=== PATIENT | female | born 1950 | race Caucasian/White ===

== ENCOUNTER 2017-12-21 09:46 | Observation (INO) ==
[2017-12-21] MEDS ORDERED: cefTRIAXone 1 GM VIAL IV ONE (10:24)
[2017-12-21 10:26] LABS: Mean Cell Volume 82.9 fL (80.0-100.0); Mean Corpuscular HGB Conc 33.6 g/dL (31.0-36.0); Mean Corpuscular Hemoglobin 27.9 pg (26.0-34.0); Platelet Count 213 K/mcL (140-440); RBC 4.03 M/mcL (4.00-5.20); Red Cell Distribution Width 13.2 % (11.5-14.5)
[2017-12-21] MEDS ORDERED: 0.9 % SODIUM CHLORIDE 1,000 ML IV ONE (10:32)
[2017-12-21 10:44] LABS: ALT/SGPT 30 U/l (0-40); Albumin 3.8 gm/dL (3.2-5.2); Albumin/Globulin Ratio 1.5 (1.0-2.3); Alkaline Phosphatase 66 U/L (39-117); Blood Urea Nitrogen 75 mg/dl (8-23)
--- NOTE | 2017-12-21 10:53 | Emergency Department Note ---
Syncope HPI - General Chief Complaint: Syncope Stated Complaint: dizziness Time Seen by Provider: 12/21/17 09:58 Source: patient, EMS Mode of arrival: ambulatory Limitations: no limitations - History of Present Illness HPI Narrative: 67-year-old female who was at [facility] to see her primary care when she had a syncopal episode at the front sight attacher hitting her head-headache now. She was only out briefly. Denies any neck trauma. She states she has been over the last week but has not had fever or chills. One episode of diarrhea 3 days ago. For the most part she is constipated however. She notes decreased urination and pain with urination when she does. She did take some Tylenol which helps some. Her last A1c was 12.2 and she is an insulin-dependent diabetic and sees Dr. Bone for chronic kidney disease. Baseline GFR is 35 - Related Data Home Medications Medication Instructions Recorded Confirmed insulin aspart U-100 100 unit/mL See Label Instructions .ROUTE 03/18/16 subcutaneous solution .COMPLEX insulin degludec (U-100) 100 28 unit SUB-Q QHS ml 03/18/16 12/21/17 unit/mL (3 mL) subcutaneous pen Previous Rx's Medication Instructions Recorded aspirin 81 mg tablet,delayed 81 mg PO QDAY #60 tab 08/15/15 release cholecalciferol (vitamin D3) 2,000 1,000 unit PO QDAY #30 cap 09/15/16 unit capsule Allergies Allergy/AdvReac Type Severity Reaction Status Date / Time Iodinated Contrast- Oral and Allergy Severe Anaphylaxis Verified 12/21/17 09:56 IV Dye [Iodinated Contrast Media - IV Dye] Review of Systems All systems ED: reviewed and negative except as stated. Past Medical History - Past Medical History Attestation: Yes: The following information was validated with the patient. Medical history: Reports: DM, renal disease, other (Hyperuricemia, anemia of chronic disease) Surgical history ED: Reports: appendectomy, tonsillectomy, other (Middle toe, lymph node in the right neck) - Social History smoking status: Former smoker Physical Exam No acute distress resting comfortably. Small hematoma approximately 4 cm or so not bleeding on her occiput. Conjunctive are clear sclerae nonicteric. Pupils equal round reactive to light and accommodation. No nasal discharge or congestion. Oropharynx is pink and moist. Dentures noted. Posterior pharynx is clear. Neck is supple without lymphadenopathy thyromegaly or carotid bruit. Heart is regular rate and rhythm no murmur appreciated. Lungs are clear to auscultation bilaterally without wheezes rales rhonchi or respiratory distress. Abdomen is soft nontender nondistended except for suprapubic which is mildly tender. No CVA tenderness peritoneal signs or guarding. No pedal edema. +2 radial pulse. Alert oriented able to cooperate for physical exam and interview. No dysarthria or ataxia or tremor noted. Globally weak Limitations: no limitations Course Vital Signs Temperature 97.8 F 12/21/17 09:47 Pulse Rate 94 H 12/21/17 09:47 Blood Pressure 143/86 12/21/17 09:47 Pulse Oximetry (%) 99 12/21/17 09:47 Temperature 97.8 F 12/21/17 09:47 Pulse Rate 82 12/21/17 11:01 Respiratory Rate 18 12/21/17 11:01 Blood Pressure 164/78 12/21/17 11:01 Pulse Oximetry (%) 99 12/21/17 11:01 Syncope - Lab Data Lab results reviewed: Yes I reviewed the patient's lab results. Result diagrams: 12/21/17 10:07 12/21/17 10:07 Lab Results 12/21/17 12/21/17 12/21/17 Range/Units 10:07 10:07 10:07 WBC 4.8 (4.5-11.0) K/mcL RBC 4.03 (4.00-5.20) M/mcL Hgb 11.2 L (12.0-15.0) g/dL Hct 33.4 L (36.0-48.0) % POC Hct (36.0-48.0) % MCV 82.9 (80.0-100.0) fL MCH 27.9 (26.0-34.0) pg MCHC 33.6 (31.0-36.0) g/dL RDW 13.2 (11.5-14.5) % Plt Count 213 (140-440) K/mcL MPV 8.9 (7.4-10.4) fL Total Counted 100 Seg Neutrophils % 68 (38-78) % Band Neutrophils % 1 (0-10) % Lymphocytes % 20 (15-49) % Monocytes % (Manual) 10 (1-12) % Basophils % (Manual) 1 (0-2) % Platelet Estimate Normal (NORMAL) RBC Morphology Normal (NORMAL) VBG Lactic Acid 1.5 (0.5-2.2) mmol/L POC Sodium (133-145) mmol/L Sodium 135 (133-145) mmol/L POC Potassium (3.3-5.1) mmol/L Potassium 4.3 (3.3-5.1) mmol/L POC Chloride (96-108) mmol/L Chloride 101 (96-108) mmol/L Carbon Dioxide 20 L (22-30) mmol/L POC Total CO2 (22-30) mmol/L Anion Gap 14.0 (8-16) POC BUN (8-23) mg/dl BUN 75 H (8-23) mg/dl Creatinine 2.6 H (0.6-1.1) mg/dl POC Creatinine (0.6-1.1) mg/dl GFR Calculation 18 Glucose 305 H (70-105) mg/dL POC Glucose (70-105) mg/dL Calcium 9.6 (8.6-10.4) mg/dl POC WB Ioniz Calcium (1.16-1.32) mmol/L Magnesium (1.6-2.5) mg/dL Total Bilirubin 0.3 (0.0-1.0) mg/dL AST 22 (0-37) U/l ALT 30 (0-40) U/l Alkaline Phosphatase 66 (39-117) U/L Troponin T (0-0.03) ng/ml Total Protein 6.3 (5.9-8.4) gm/dL Albumin 3.8 (3.2-5.2) gm/dL Globulin 2.5 (2.2-3.7) gm/dL Albumin/Globulin Ratio 1.5 (1.0-2.3) 12/21/17 12/21/17 Range/Units 10:07 10:07 WBC (4.5-11.0) K/mcL RBC (4.00-5.20) M/mcL Hgb (12.0-15.0) g/dL Hct (36.0-48.0) % POC Hct 29.0 L (36.0-48.0) % MCV (80.0-100.0) fL MCH (26.0-34.0) pg MCHC (31.0-36.0) g/dL RDW (11.5-14.5) % Plt Count (140-440) K/mcL MPV (7.4-10.4) fL Total Counted Seg Neutrophils % (38-78) % Band Neutrophils % (0-10) % Lymphocytes % (15-49) % Monocytes % (Manual) (1-12) % Basophils % (Manual) (0-2) % Platelet Estimate (NORMAL) RBC Morphology (NORMAL) VBG Lactic Acid (0.5-2.2) mmol/L POC Sodium 137 (133-145) mmol/L Sodium (133-145) mmol/L POC Potassium 4.4 (3.3-5.1) mmol/L Potassium (3.3-5.1) mmol/L POC Chloride 106 (96-108) mmol/L Chloride (96-108) mmol/L Carbon Dioxide (22-30) mmol/L POC Total CO2 19 L (22-30) mmol/L Anion Gap (8-16) POC BUN 74 H (8-23) mg/dl BUN (8-23) mg/dl Creatinine (0.6-1.1) mg/dl POC Creatinine 2.8 H (0.6-1.1) mg/dl GFR Calculation Glucose (70-105) mg/dL POC Glucose 284 H (70-105) mg/dL Calcium (8.6-10.4) mg/dl POC WB Ioniz Calcium 1.21 (1.16-1.32) mmol/L Magnesium 2.1 (1.6-2.5) mg/dL Total Bilirubin (0.0-1.0) mg/dL AST (0-37) U/l ALT (0-40) U/l Alkaline Phosphatase (39-117) U/L Troponin T < 0.01 (0-0.03) ng/ml Total Protein (5.9-8.4) gm/dL Albumin (3.2-5.2) gm/dL Globulin (2.2-3.7) gm/dL Albumin/Globulin Ratio (1.0-2.3) Urinalysis [id number] dipstick shows small amount of leukocytes negative nitrites moderate blood specific gravity 1.005 - EKG Data EKG attestation: Yes I reviewed and interpreted this EKG. EKG results narrative: EKG shows a rate of 88 normal sinus rhythm with left axis deviation but no sign of ischemia Disposition Pt seen by [facility]ERTER/PA only: No Clinical Impression: Syncope due to orthostatic hypotension, Uncontrolled type 2 diabetes mellitus with insulin therapy Acute kidney failure Qualifiers: Acute renal failure type: unspecified Qualified Code(s): N17.9 - Acute kidney failure, unspecified UTI (urinary tract infection) Qualifiers: Urinary tract infection type: acute cystitis Hematuria presence: with hematuria Qualified Code(s): N30.01 - Acute cystitis with hematuria Scalp hematoma Qualifiers: Encounter type: initial encounter Qualified Code(s): S00.03XA - Contusion of scalp, initial encounter Summary: Patient is worked up for syncope and found to be severely orthostatic with a 60 point drop in systolic blood pressure when she stands. Her chronic kidney disease is much worse today with a GFR of 18. Additionally she has a UTI. Started Rocephin 1 dose for UTI. IV fluids 1 L as well. On review it does appear that her diabetes is not well controlled even on insulin She does have a small scalp hematoma but her neuro exam is normal and she is not on blood thinners beside ASA Discussed case with Dr. Wong, the hospitalist, who agreed to accept the patient for further evaluation care in the hospital Disposition: Xfer As Inpt ([facility]) Condition: Fair Referrals: Shanae Mora ARNP [Primary Care Provider] -
[2017-12-21 11:00] LABS: Band Neutrophils % 1 % (0-10); Basophils % (Manual) 1 % (0-2); Lymphocytes % 20 % (15-49); Monocytes % (Manual) 10 % (1-12); Platelet Estimate NORMAL (NORMAL); RBC Morphology NORMAL (NORMAL); Segmented Neutrophils % 68 % (38-78)
--- NOTE | 2017-12-21 11:23 | Internal Med History&Physical ---
Medical - H&P: HPI Patient information: Note initiated : 12/21/17 at 11:21 am Service Date, if different from initiated Date: [] Patient: Ana Kovacs 67 y/o F admitted on for dizziness. Chief Complaint: [] Chief complaint: syncope History of present illness: Ana Kovacs is a 50-xpycb-vic female with chronic kidney disease stage 3, persistent non-nephrotic range proteinuria, vitamin D deficiency, secondary hyperparathyroidism, chronic anemia due to renal failure, hypertension, diabetes mellitus type 2, here presents to the ER following a syncopal episode at primary care physician's office. Patient lives at [facility] and was visiting her primary care physician's office when she experienced a syncopal episode and went down. Event was witnessed by staff. More information is being obtained from PCPs office about nature of fall injury history. However patient denies seizure episode or incontinence. She denies aura or chest palpitations and lightheadedness or thunderclap headache prior to fainting. She has not had similar events in the past. She also endorses to not feeling well since Thursday. She has been experiencing lower abdominal discomfort and inability to void along with pain during urination since Thursday. She denies perineal bleeding, weight loss, blood in urine or stool, change in stool caliber however endorses to constipation over the last 4 days. She has had a recent yeast infection currently on fluconazole. She denies associated fever or skin rash joint pain, neck stiffness or vision changes. She denies new medication or taking diuretics. Initial workup in the ER was negative for positive orthostatics and elevated creatinine above baseline at 2.8. There were no EKG abnormalities. Hospitalist service was consulted for observation in light of syncopal episode and elevated creatinine. Patient was started on empiric antibiotics due to symptoms of dysuria and urine positive dip test She denies prior similar episodes although she has had history of intermittent seizures secondary to hypoglycemia in the past Review of systems 10 point review of system was performed and is negative except for ones discussed above Medical - H&P: PMH Medical history: Persistent proteinuria (Chronic) Anemia in stage 3 chronic kidney disease (Chronic) Secondary hyperparathyroidism of renal origin (Chronic) Vitamin D deficiency (Chronic) Chronic Kidney Disease (Chronic) Iron deficiency anemia (Acute) Chronic kidney disease, stage III (moderate) (Chronic) Gastroparesis diabeticorum (Chronic) Anemia (Chronic) Long-term insulin use (Chronic) Fatigue (Chronic) Low blood pressure (Chronic) Postmenopausal (Chronic) UTI (urinary tract infection) (Chronic) Poor sleep (Chronic) Diabetes (Chronic) Indigestion (Chronic) Proteinuria (Acute) Abnormal results of kidney function studies (Chronic) Amputation of little toe (Chronic) 1998 Hyperlipidemia (Chronic) Lesion of bladder (Chronic) 2013 Surgical history: Surgical History History of appendectomy (Chronic) 1965 S/P ear surgery (Chronic) ? gland in ear - 1966 Pertinent family history: Family History Father Alcoholism Sister Hypertension Diabetes mellitus History of intravascular stent placement Mother Cerebral hemorrhage Social history: Social History marital status: Accompanied with his sister K Patient lives at [facility] primary care physician Shanae Mora occupational status: retired smoking status: Former smoker quit 40 years ago alcohol intake frequency: holiday/special occasion only Medical - H&P: Meds Home Medications Medication Instructions Recorded Confirmed Type aspirin 81 mg tablet,delayed 81 mg PO QDAY #60 tab 08/15/15 12/21/17 Rx release insulin aspart U-100 100 unit/mL See Label Instructions .ROUTE 03/18/16 History subcutaneous solution .COMPLEX insulin degludec (U-100) 100 28 unit SUB-Q QHS ml 03/18/16 12/21/17 History unit/mL (3 mL) subcutaneous pen cholecalciferol (vitamin D3) 2,000 1,000 unit PO QDAY #30 cap 09/15/16 12/21/17 Rx unit capsule Allergies Allergy/AdvReac Type Severity Reaction Status Date / Time Iodinated Contrast- Oral and Allergy Severe Anaphylaxis Verified 12/21/17 09:56 IV Dye [Iodinated Contrast Media - IV Dye] Medical - H&P: Exam - Constitutional Vitals: Temp Pulse Resp BP Pulse Ox 97.8 F 82 18 164/78 99 12/21/17 09:47 12/21/17 11:01 12/21/17 11:01 12/21/17 11:01 12/21/17 11:01 General appearance: cooperative, no acute distress Exam: Eye movements symmetrical Oral cavity dry No ear or nose discharge Head normocephalic Neck no lymphadenopathy S1 and S2 regular rhythm Diminished breath sounds bases Abdomen soft Lower extremity no cyanosis clubbing Skin no suspicious lesion Psych alert cooperative Neuro nonfocal Medical - H&P: Reslt - Labs CBC & Chem 7: 12/21/17 10:07 12/21/17 10:07 Labs: Short CBC 12/21/17 Range/Units 10:07 WBC 4.8 (4.5-11.0) K/mcL Hgb 11.2 L (12.0-15.0) g/dL Hct 33.4 L (36.0-48.0) % Plt Count 213 (140-440) K/mcL BMP 12/21/17 10:07 Sodium 135 Potassium 4.3 Chloride 101 Carbon Dioxide 20 L BUN 75 H Creatinine 2.6 H Glucose 305 H Calcium 9.6 Cardiac Enzymes 12/21/17 Range/Units 10:07 Troponin T < 0.01 (0-0.03) ng/ml Liver Function 12/21/17 Range/Units 10:07 Total Bilirubin 0.3 (0.0-1.0) mg/dL AST 22 (0-37) U/l ALT 30 (0-40) U/l Alkaline Phosphatase 66 (39-117) U/L Albumin 3.8 (3.2-5.2) gm/dL Medical - H&P: A/P (1) Syncope due to orthostatic hypotension Current visit: Yes Status: Acute \ * Syncopal episode- workup including CT head/extrusion of arrhythmia/ vertebrobasilar circulation evaluation with Doppler ultrasound, continued orthostatics, fluid challenge. Recent echocardiogram reviewed with 60% EF and normal valves. Unlikely a seizure episode * Elevated creatinine likely volume depletion. Continue crystalloids. Nephrology consult if worsening creatinine * Urinary retention/dysuria-await UA. On empiric antibiotic coverage. Renal ultrasound to rule out obstructive uropathy. Foleys catheter placement * Insulin-dependent diabetes type 2-continue basal prandial insulin * DNR * Prophylaxis heparin Plan * Telemetry admit * Crystalloids/orthostatics/CT head/vertebrobasilar ultrasound * Renal ultrasound * Antibiotic coverage * Pre-existing medical condition management as above
[2017-12-21 12:18] LABS: Appearance,Urine HAZY; Bacteria,Urine 0 /hpf (0); Bilirubin,Urine NEG (NEG); Color,Urine YELLOW; Glucose,Urine (UA) >=500 mg/dL (NEG); Leukocyte Esterase,Urine 500 /uL (NEG); Protein,Urine 30 mg/dL (NEG); Specific Gravity,Urine 1.014 (1.000-1.035); Urine Blood NEG mg/dL (<0.03); Urine Hyaline Cast 1 /lpf (0-2); Urine RBC 2 /hpf (0-1); Urine Squamous Epithelial Cell 0 /hpf (0-4); Urine WBC 10 /hpf (0-4); Urobilinogen,Urine NEG (NEG)
[2017-12-21] MEDS ORDERED: ONDANSETRON 4 MG/2 ML VIAL IV PRN (12:33)
[2017-12-21] MEDS ORDERED: MAGNESIUM SULFATE 2 GM/50 ML BAG IV PRN (12:33)
[2017-12-21] MEDS ORDERED: DEXTROSE 50% 50 ML VIAL IV PRN (12:33)
[2017-12-21] MEDS ORDERED: ACETAMINOPHEN 325 MG TABLET PO PRN (12:33)
[2017-12-21] MEDS ORDERED: DEXTROSE 31 GM ORAL.SUSP PO PRN (12:33)
[2017-12-21] MEDS ORDERED: ACETAMINOPHEN 1,000 MG/100 ML BOTTLE IV PRN (12:33)
[2017-12-21] MEDS: INSULIN LISPRO 1 UNIT/0.01 ML UNIT SQ SCH ×3 (12:56→21:24)
[2017-12-21] MEDS: 0.9 % SODIUM CHLORIDE 1,000 ML IV SCH (12:57)
[2017-12-21] MEDS: 0.9 % SODIUM CHLORIDE 10 ML SYRINGE IV SCH ×2 (12:58→21:25)
[2017-12-21] MEDS ORDERED: cefTRIAXone 1 GM VIAL IV SCH (13:00)
--- NOTE | 2017-12-21 14:31 | Cat Scan Report ---
CLINICAL INFORMATION: Syncope COMPARISON: None. TECHNIQUE: 2.5 mm helical slices were obtained in the skull base to vertex. Following reconstruction, axial reformatted images were reviewed at bone and parenchymal windows. The exam was performed using radiation dose optimization techniques including, but not limited to, automated exposure control, adjustment of the mA and/or kV according to patient size and use of iterative reconstruction technique. FINDINGS: The ventricles, sulci, fissures, and cisterns are symmetrically enlarged trauma with mild age-related atrophy - no subdural hemorrhage or extra-axial fluid collection or mass appreciated. Minimal chronic ischemic changes deep cerebral white matter are typical for age. Scattered punctate remote lacunar infarcts in the basal ganglia. There is no intracerebral hemorrhage, mass effect, edema or other acute finding. Bone windows show no osseous abnormality. 4 cm lens shaped lipoma in the left posterior frontal scalp region noted IMPRESSION: Mild atrophy and minimal chronic ischemic changes in the cerebral white matter expected for age. Scattered remote lacunar infarcts in the basal ganglia. No acute findings.. Interpreted and Authenticated by: Bucky Haji 12/21/17
--- NOTE | 2017-12-21 15:53 | Ultrasound Report ---
CLINICAL INFORMATION: Syncope evaluate for vertebral basilar insufficiency COMPARISON: None. TECHNIQUE: Spectral Doppler velocity measurements were obtained in the proximal, mid and distal common and internal carotid, both vertebral and proximal external carotid arteries bilaterally. Supplemental color and power Doppler imaging was also obtained to optimize stenosis detection. In reporting, any internal carotid stenosis was indirectly quantified comparing the distal internal carotid velocity. For ratio comparison, the internal carotid artery, at the level of stenosis, was utilized in the numerator and the normal distal internal carotid artery velocity was utilized as the denominator. Velocities are validated with angiographic measurements extrapolated from diameter data - as defined by the Society of Radiologists in Ultrasound Consensus Conference .Radiology 2003; 229; 340 - 346. FINDINGS: See worksheet by the technologist for velocities in PACS IMPRESSION: 1. Both common, internal and external carotid arteries are widely patent. 2. 3. Antegrade symmetric arterial blood flow in both vertebral arteries - no sonographic evidence of vertebral stenosis Please correlate with CTA CT Angiography or MRA MR Angiography if surgery is contemplated. Interpreted and Authenticated by: Bucky Haji 12/21/17
--- NOTE | 2017-12-21 16:23 | Ultrasound Report ---
CLINICAL INFORMATION: Acute kidney disease COMPARISON: Renal ultrasound over two years prior - 11/12/2015 FINDINGS: Both kidneys are lower limits of normal in size: The right is 9.5 x 4.4 cm and the left is 9.5 x 5 cm. Renal cortex and medulla are mildly thinned and hyperechoic compatible with medical renal disease. Probable volume loss has progressed since the previous study. No focal renal lesions. The arterial blood flow is normal on color Doppler. No hydronephrosis Ledesma catheter is in place decompressing the bladder - no gross abnormality IMPRESSION: Both kidneys are at lower limits of normal in size with reduction in corticomedullary volume and increased echogenicity compatible bilateral medical renal disease. This has progressed modestly since a comparison ultrasound two years ago Interpreted and Authenticated by: Bucky Haji 12/21/17
[2017-12-21] MEDS ORDERED: INSULIN GLARGINE, HUMAN 1 UNIT/0.01 ML SQ SCH (21:00)
[2017-12-21] MEDS ORDERED: INSULIN DEGLUDEC SUB-Q SCH (21:00)
[2017-12-21] MEDS: DOCUSATE SODIUM 100 MG CAPSULE PO SCH (21:23)
[2017-12-21] MEDS: SENNOSIDES/DOCUSATE SODIUM 1 TAB TABLET PO SCH (21:23)
[2017-12-21] MEDS: HEPARIN 5,000 UNIT/ML VIAL SQ SCH (21:23)
[2017-12-22 05:32] LABS: Mean Cell Volume 83.8 fL (80.0-100.0); Mean Corpuscular Hemoglobin 28.5 pg (26.0-34.0); Platelet Count 196 K/mcL (140-440); RBC 3.56 M/mcL (4.00-5.20); Red Cell Distribution Width 13.3 % (11.5-14.5)
[2017-12-22] MEDS: 0.9 % SODIUM CHLORIDE 10 ML SYRINGE IV SCH ×3 (05:46→20:51)
[2017-12-22 05:56] LABS: ALT/SGPT 22 U/l (0-40); Albumin 3.2 gm/dL (3.2-5.2); Albumin/Globulin Ratio 1.5 (1.0-2.3); Alkaline Phosphatase 54 U/L (39-117); Bilirubin,Direct < 0.2 mg/dL (0.0-0.3); Blood Urea Nitrogen 54 mg/dl (8-23); Gamma Glutamyl Transpeptidase 13 U/L (5-36); Uric Acid 8.4 mg/dL (2.5-8.0)
[2017-12-22 07:01] LABS: Band Neutrophils % 6 % (0-10); Eosinophils % (Manual) 4 % (0-7); Lymphocytes % 32 % (15-49); Metamyelocytes % 1 % (0-0); Monocytes % (Manual) 11 % (1-12); Platelet Estimate NORMAL (NORMAL); RBC Morphology NORMAL (NORMAL); Segmented Neutrophils % 44 % (38-78)
[2017-12-22] MEDS: INSULIN LISPRO 1 UNIT/0.01 ML UNIT SQ SCH ×4 (07:55→20:49)
[2017-12-22] MEDS: 0.9 % SODIUM CHLORIDE 1,000 ML IV SCH ×5 (09:28→22:50)
[2017-12-22] MEDS: HEPARIN 5,000 UNIT/ML VIAL SQ SCH ×2 (09:32→20:49)
[2017-12-22] MEDS: ASPIRIN 81 MG TAB.CHEW PO SCH (09:32)
[2017-12-22] MEDS: DOCUSATE SODIUM 100 MG CAPSULE PO SCH ×2 (09:32→21:03)
[2017-12-22] MEDS: cefTRIAXone 2 GM in DEXTROSE 5% IN WATER 50 ML IV SCH (09:32)
--- NOTE | 2017-12-22 12:28 | Internal Med Progress Note ---
Medical - PN: Subj Patient information: Note initiated : 12/22/17 at 12:21 pm Service Date, if different from initiated Date: [] Patient: Ana Kovacs 67 y/o F admitted on 12/21/17 for Dizziness/Syncope due to Orthostatic Hypotension. Chief Complaint: [] Interval history: Ana Kovacs is a [id number] female with chronic kidney disease stage 3, persistent non-nephrotic range proteinuria, vitamin D deficiency, secondary hyperparathyroidism, chronic anemia due to renal failure, hypertension, diabetes mellitus type 2, here presents to the ER following a syncopal episode at primary care physician's office. Patient lives at [facility] and was visiting her primary care physician's office when she experienced a syncopal episode and went down. Event was witnessed by staff. More information is being obtained from PCPs office about nature of fall injury history. However patient denies seizure episode or incontinence. She denies aura or chest palpitations and lightheadedness or thunderclap headache prior to fainting. She has not had similar events in the past. She also endorses to not feeling well since Thursday. She has been experiencing lower abdominal discomfort and inability to void along with pain during urination since Thursday. She denies perineal bleeding, weight loss, blood in urine or stool, change in stool caliber however endorses to constipation over the last 4 days. She has had a recent yeast infection currently on fluconazole. She denies associated fever or skin rash joint pain, neck stiffness or vision changes. She denies new medication or taking diuretics. Initial workup in the ER was negative for positive orthostatics and elevated creatinine above baseline at 2.8. There were no EKG abnormalities. Hospitalist service was consulted for observation in light of syncopal episode and elevated creatinine. Patient was started on empiric antibiotics due to symptoms of dysuria and urine positive dip test She denies prior similar episodes although she has had history of intermittent seizures secondary to hypoglycemia in the past 12/22 Pt seen examined, no acute overnight issues, tolerating po well this AM noted to be hypoglycemic, D50 given, pt glucose better notes she has often had low glucose values in the AM, usually uses 20-22 but can use upto 28 units of insulin. I will cut the dose of lantus to 15, ssi is low dose, She is still orthostatic renal function is better CT head neg, carotid usg neg, syncope likely due to dehydration/ orthostatic changes. Pertinent ROS: Denies headache, present orthostatic dizziness Denies chest pain, palpitations Denies cough or shortness of breath Denies abdominal pain, nausea or vomiting. - Constitutional Vitals: Vital Signs Temp Pulse Resp BP Pulse Ox 98.2 F 76 16 157/68 96 12/22/17 12:16 12/22/17 12:16 12/22/17 12:16 12/22/17 12:16 12/22/17 12:16 Period Temp Pulse Resp BP Sys/Lloyd Pulse Ox Last 24 Hr 97.1 F-99.3 F 61-87 16-22 69-170/41-74 95-99 Intake and Output 12/21/17 12/22/17 12/22/17 21:59 05:59 13:59 Intake Total 480 / 480 610 / 610 1548 / 1548 Output Total 1200 / 1200 550 / 550 Balance -720 / -720 60 / 60 1548 / 1548 Weight 144 lb Intake & Output: Intake & Output 12/21/17 12/22/17 12/22/17 21:59 05:59 13:59 Intake Total 480 / 480 610 / 610 1548 / 1548 Output Total 1200 / 1200 550 / 550 Balance -720 / -720 60 / 60 1548 / 1548 Weight 144 lb Intake: IV 1068 / 1068 Sodium Chloride 0.9% 1,000 ml @ 1068 / 1068 50 mls/hr IV .Q20H [facility] Rx#: [id number] Oral 480 / 480 610 / 610 480 / 480 Output: Urine Catheter Amount 1200 / 1200 550 / 550 Other: Meal Breakfast Percent of Meal Consumed 90% Feeding Ability Assist with Tray Set Up Exam: Constitutional; Afebrile, cooperative, alert, not in distress. Eyes- No icterus, , No periorbital swelling Ears- Ext ear normal, hearing normal to conversation. Neck- Midline trachea, supple Respiratory system: Air Entry equal on both sides, No crackles or wheezing, no rhonchi. CVS- Rate rhythm regular, S1,S2 heard, no gallop, no rub. Abdomen- Soft nontender abdomen, no organomegaly, no tenderness, no guarding or rigidity, BIN CLEANER- AOOx3, moving all extremities, no gross focal deficit noted. Medical - PN: Obj Da - Labs CBC & Chem 7: 12/22/17 03:40 12/22/17 03:40 Labs: Abnormal Lab Results 12/22/17 12/22/17 12/21/17 03:40 03:40 10:10 RBC 3.56 L Hgb 10.1 L Hct 29.8 L POC Hct Metamyelocytes % 1 H Chloride 110 H Carbon Dioxide POC Total CO2 POC BUN BUN 54 H Creatinine 2.1 H POC Creatinine Glucose 121 H POC Glucose Uric Acid 8.4 H Total Protein 5.4 L Triglycerides 169 H Urine Protein 30 A Urine Glucose (UA) >=500 A Urine Ketones 5/tr A Ur Leukocyte Esterase 500 A Urine RBC 2 H Urine WBC 10 H 12/21/17 12/21/17 12/21/17 10:07 10:07 10:07 RBC Hgb 11.2 L Hct 33.4 L POC Hct 29.0 L Metamyelocytes % Chloride Carbon Dioxide 20 L POC Total CO2 19 L POC BUN 74 H BUN 75 H Creatinine 2.6 H POC Creatinine 2.8 H Glucose 305 H POC Glucose 284 H Uric Acid Total Protein Triglycerides Urine Protein Urine Glucose (UA) Urine Ketones Ur Leukocyte Esterase Urine RBC Urine WBC Meds: Medications Acetaminophen (Tylenol) 650 mg PO Q4-6HP PRN PRN Reason: PAIN/FEVER > 101 Aspirin (Aspirin) 81 mg PO DAILY [facility] Last Admin: 12/22/17 09:32 Dose: 81 mg Dextrose (Dextrose 50%) 0 ml IV UD PRN PRN Reason: Hypoglycemia Last Admin: 12/22/17 07:54 Dose: 50 ml Diagnostic Test (Pha) (Accu-Chek) 1 each FS ACHS [facility] Last Admin: 12/22/17 12:10 Dose: 1 each Docusate Sodium (Colace) 100 mg PO BID [facility] Last Admin: 12/22/17 09:32 Dose: 100 mg Glucose (Insta-Glucose) 15 gm PO PRN PRN PRN Reason: Hypoglycemia Heparin Sodium (Porcine) (Heparin) 5,000 unit SQ Q12 [facility] Last Admin: 12/22/17 09:32 Dose: 5,000 unit Ceftriaxone Sodium 2 gm/ (Dextrose) 50 mls @ 100 mls/hr IV Q24H [facility] Last Admin: 12/22/17 09:32 Dose: 100 mls/hr Magnesium Sulfate (Magnesium Sulfate) 2 gm in 50 mls @ 50 mls/hr IV UD PRN PRN Reason: MG = or < 1.7 Acetaminophen (Ofirmev) 1,000 mg in 100 mls @ 200 mls/hr IV Q6HP PRN PRN Reason: PAIN/FEVER > 101 Insulin Glargine (Lantus) 15 unit SQ HS KIRSTIN Insulin Human Lispro (Humalog) 0 unit SQ ACHS KIRSTIN PRN Reason: Protocol Last Admin: 12/22/17 12:13 Dose: 6 unit Ondansetron HCl (Zofran) 4 mg IV Q4-6HP PRN PRN Reason: Nausea And Vomiting Senna/Docusate Sodium (Senna Plus Tablet) 1 tab PO HS [facility] Last Admin: 12/21/17 21:23 Dose: 1 tab Sodium Chloride (Saline Flush) 10 ml IV Q8 [facility] Last Admin: 12/22/17 05:46 Dose: Not Given Medical - PN: A/P - Time Spent With Patient Total time spent is greater than 50% in coordination of care (as documented) at patient's floor/unit and/or counseling patient: - Narrative A/P Narrative: A/p sycope- likely orthostatic, pt feeling better, but still has orthostatic hypotension, IV fluids to contine, no events on tele, ct head neg, carotid duplex neg, monitor on tele Acute on Chr renal failure- creat improved to 2.1, anticipate continued improvement with IVF< monitor. UTI- ON rocephin, urine cultures is showing proteus, DM type 2, uncontrolled, with hyper and hypoglycemia- cut back the dose of lantus for now, she may need low basal and high sliding scale vs non insulin regime check A1c, advised outpatient follow up with openstack developer if unable to get DM under better control DVT hep sq DNR code status. Medical - PN: Qual - VTE Deep Vein Thrombosis/Pulmonary Embolism Present on Admission: No
[2017-12-22] MEDS: INSULIN GLARGINE, HUMAN 1 UNIT/0.01 ML SQ SCH (20:49)
[2017-12-22] MEDS: SENNOSIDES/DOCUSATE SODIUM 1 TAB TABLET PO SCH (21:03)
[2017-12-23 05:52] LABS: Mean Cell Volume 84.8 fL (80.0-100.0); Mean Corpuscular HGB Conc 33.1 g/dL (31.0-36.0); Mean Corpuscular Hemoglobin 28.1 pg (26.0-34.0); Platelet Count 206 K/mcL (140-440); RBC 3.64 M/mcL (4.00-5.20)
[2017-12-23 06:01] LABS: ALT/SGPT 18 U/l (0-40); Albumin 3.1 gm/dL (3.2-5.2); Albumin/Globulin Ratio 1.4 (1.0-2.3); Alkaline Phosphatase 51 U/L (39-117); Bilirubin,Direct < 0.2 mg/dL (0.0-0.3); Blood Urea Nitrogen 34 mg/dl (8-23); Gamma Glutamyl Transpeptidase 13 U/L (5-36); Uric Acid 6.8 mg/dL (2.5-8.0)
[2017-12-23 06:41] LABS: Estimated Average Glucose(eAG) 280 mg/dL; Hemoglobin A1C 11.4 % HGB (4.0-6.0)
[2017-12-23 07:41] LABS: Eosinophils % (Manual) 2 % (0-7); Lymphocytes % 26 % (15-49); Monocytes % (Manual) 5 % (1-12); Platelet Estimate NORMAL (NORMAL); RBC Morphology NORMAL (NORMAL); Segmented Neutrophils % 65 % (38-78)
[2017-12-23] MEDS: ASPIRIN 81 MG TAB.CHEW PO SCH (09:00)
[2017-12-23] MEDS: DOCUSATE SODIUM 100 MG CAPSULE PO SCH (09:14)
[2017-12-23] MEDS: cefTRIAXone 2 GM in DEXTROSE 5% IN WATER 50 ML IV SCH (09:14)
[2017-12-23] MEDS: 0.9 % SODIUM CHLORIDE 10 ML SYRINGE IV SCH (09:15)
[2017-12-23] MEDS: INSULIN LISPRO 1 UNIT/0.01 ML UNIT SQ SCH ×2 (09:15→12:02)
[2017-12-23] MEDS: HEPARIN 5,000 UNIT/ML VIAL SQ SCH (09:18)
[2017-12-23] MEDS: INSULIN GLARGINE, HUMAN 1 UNIT/0.01 ML SQ SCH (09:19)
[2017-12-23] MEDS ORDERED: LORazepam 2 MG/ML VIAL IV ONE ×2 (10:29→13:00)
--- NOTE | 2017-12-23 13:18 | Cat Scan Report ---
CLINICAL INFORMATION: Trauma - now with neck pain and dizziness COMPARISON: None. TECHNIQUE: 0.625 mm helical slices were obtained from the skull base through the superior T2 end plate, and following reconstruction, 2.5 mm sagittal, coronal and axial reformations were then processed. The exam was reviewed at bone and soft tissue windows. The exam was performed using radiation dose optimization techniques including, but not limited to, automated exposure control, adjustment of the mA and/or kV according to patient size and use of iterative reconstruction technique. FINDINGS: Sagittal and coronal reformatted images show the cervical spine is anatomically aligned. There is an old ununited Mario instrument mechanics supervisor's fracture through the C7 spinous process tip which should be clinically insignificant. No other osseous abnormality. The cervical cord is normal in contour and caliber without focal lesion. Paraspinous soft tissues are significant for three colloid cyst in the right thyroid lobe measuring up to 17 mm. There is a 11 mm inhomogeneous solid lesion in the left thyroid lobe and 3-4 smaller lesions low-attenuation left thyroid lobe. There is also a 7.2 mm nodule in the posterior segment of the right upper lobe. Increased soft tissue in the right maxillary sinus is seen on only the most superior image: this could represent sinusitis or polyp At C2-3 and C3-4, there is minimal broad central disc protrusion slightly impinges the thecal sac. At C4-5 disc level is normal At C5-6, mild broad disc spur complex results in mild central canal and mild bilateral lateral recess narrowing At C6-7, moderate broad disc spur complex results in mild central canal, mild left and minimal right lateral recess narrowing. At C7-T1, the disc level is normal IMPRESSION: 1. 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 There is a nonweightbearing region and considered clinically insignificant. There are no acute fractures or other significant osseous abnormality 2. Mild multilevel degenerative change - as described 3. Multiple thyroid lesions likely both colloid cysts and adenomas. A multinodular adenoma was also described on a 07/30/2016 thyroid ultrasound. 4. 7 mm nodule in the posterior segment of the right upper lobe - consider chest CT 5. Right maxillary sinusitis Interpreted and Authenticated by: Bucky Haji 12/23/17
--- NOTE | 2017-12-23 14:16 | Magnetic Resonance Report ---
CLINICAL INFORMATION: Trauma with headache COMPARISON: Head CT - 12/21/2017 TECHNIQUE:Sagittal T1 FLAIR, axial T1 FLAIR, T2 FLAIR propeller, T2 propeller, gradient, diffusion, ADC and coronal T2 weighted images were acquired. FINDINGS: The ventricles, sulci, fissures and cisterns show minimal symmetric enlargement palpable with mild age-related atrophy - no subdural hemorrhage or other extra-axial fluid collection or mass is appreciated. Scattered chronic ischemic foci in the deep cerebral white matter is expected for age. There is no intracerebral hemorrhage, mass effect, restricted diffusion, edema or other acute finding. A 4.2 x 1 cm benign lipoma in the left frontal scalp region seen as before. There are two polyps in the right maxillary sinus, 18 and 10 mm, respectively. Other paranasal air cells are clear. Orbits and pituitary are normal. A small amount of fluid present within a single left mastoid air cell IMPRESSION: 1. No intracerebral hemorrhage or other acute posttraumatic change 2. Mild atrophy and scattered chronic ischemic foci in the deep cerebral white matter - expected for age 3. 4 cm benign lipoma in the left frontal scalp 4. Mild left mastoiditis 5. Two polyps, ranging up to 18 mm, in the right maxillary sinus Interpreted and Authenticated by: Bucky Haji 12/23/17
--- NOTE | 2017-12-23 15:13 | Discharge Summary ---
Medical - DS: Prov Patient information: Note initiated : 12/23/17 at 3:08 pm Service Date, if different from initiated Date: [] Patient: Ana Kovacs 67 y/o F admitted on 12/21/17 for Dizziness/Syncope due to Orthostatic Hypotension. Chief Complaint: [] Date of admission: 12/21/17 12:29 Discharge date: 12/23/17 Primary care physician: Shanae Mora Admitting clinician: Nikunj Iniguez Consults: 12/21/17 11:12 Consult to Physician [CONS] Stat Comment: Consulting Provider: Nikunj Iniguez Reason For Exam: Physician to Consult Discharging clinician: Morro Celaya Medical - DS: Meds - Discharge Medications Prescriptions: Cephalexin [Keflex] 500 mg PO BID #10 cap Active and Home Medications: Home Medications aspirin 81 mg tablet,delayed release 81 mg PO QDAY #60 tab 08/15/15 [Rx Confirmed 12/21/17 Last Taken Unknown] insulin aspart U-100 100 unit/mL subcutaneous solution See Label Instructions .ROUTE .COMPLEX 03/18/16 [History Confirmed 12/21/17 Last Taken Unknown] insulin degludec (U-100) 100 unit/mL (3 mL) subcutaneous pen 28 unit SUB-Q QHS ml 03/18/16 [History Confirmed 12/21/17 Last Taken Unknown] cholecalciferol (vitamin D3) 2,000 unit capsule 1,000 unit PO QDAY #30 cap 09/15 [Rx Confirmed 12/21/17 Last Taken Unknown] Cephalexin [Keflex] 500 mg PO BID #10 cap 12/23/17 [Rx Last Taken Unknown] Medical - DS: Hosp Hospital course: Ana Kovacs is a [id number] female with chronic kidney disease stage 3, persistent non-nephrotic range proteinuria, vitamin D deficiency, secondary hyperparathyroidism, chronic anemia due to renal failure, hypertension, diabetes mellitus type 2, here presents to the ER following a syncopal episode at primary care physician's office. Patient lives at [facility] and was visiting her primary care physician's office when she experienced a syncopal episode and went down. Event was witnessed by staff. More information is being obtained from PCPs office about nature of fall injury history. However patient denies seizure episode or incontinence. She denies aura or chest palpitations and lightheadedness or thunderclap headache prior to fainting. She has not had similar events in the past. She also endorses to not feeling well since Thursday. She has been experiencing lower abdominal discomfort and inability to void along with pain during urination since Thursday. Initial workup in the ER was negative for positive orthostatics and elevated creatinine above baseline at 2.8. There were no EKG abnormalities. Hospitalist service was consulted for observation in light of syncopal episode and elevated creatinine. Patient was started on empiric antibiotics due to symptoms of dysuria and urine positive dip test Syncope- Positive orthostatics despite treatment of dehydration, she has h/o same in the past, She has diabetic autonomic neuropathy causing ortho static hypotension. She has been diagnosed with this in the past, her present epside was a culmination of UTi, dehydration as well as autonomic dysregulation Head CT is neg, MRI head is neg, Carotid duplex neg, CT cervical is neg for acute fractures. She has been educated to keep yourself well hydrated. She has been educated with regards to making sure that she changes her posture from lying to sitting and then sitting to standing gradually making sure that she is not having any symptoms before she leaves the bedside of the chair. I have advised to to get MARIBELL hose stockings, she needs to use the stockings in the morning and remove them at bedtime. This will help with her orthostatic blood pressure changes. Dizziness- she report some dizziness when she moves her head, I believe this is post concussion syndrome which should improve by it self. Urinary tract infection-Proteus noted pansensitive received 2 doses of Rocephin , will complete 5 more days with Keflex. Acute on chr renal failure, CReat was 2.8, improve to 1.5 at discharge Diabetes-patient has uncontrolled diabetes with hyper and hypoglycemic spells. She is taking 28 units of long-acting insulin and a sliding scale, I have advised her to cut back on the long-acting insulin. Talk to her doctor with regards to sliding scale dosing. I believe that she would benefit from an evaluation by an dispatch officer. I would advise the PCP to make a referral to see an dispatch officer. Discharge diagnosis: UTI, syncope, Diabetic neuropathy - Time Spent with Patient Total time spent providing and/or coordinating discharge services: Greater than 30 minutes Medical - DS: Exam - Constitutional Vitals: Vital Signs Temp Pulse Pulse Pulse Pulse Resp BP 12/23/17 12:05 77 12/23/17 12:00 98.0 F 73 18 12/23/17 09:00 64 70 12/23/17 08:00 65 12/23/17 07:46 97.7 F 16 12/23/17 04:00 98.1 F 72 18 12/23/17 00:19 98.4 F 18 163/65 12/22/17 20:00 98.8 F 72 16 12/22/17 15:53 98.3 F 68 16 BP BP BP BP Pulse Ox 12/23/17 12:05 95/55 12/23/17 12:00 146/64 100 12/23/17 09:00 155/63 77/52 12/23/17 08:00 140/73 12/23/17 07:46 185/63 98 12/23/17 04:00 152/68 12/23/17 00:19 98 12/22/17 20:00 151/63 96 12/22/17 15:53 155/61 98 Intake and Output 12/23/17 12/23/17 12/23/17 05:59 13:59 21:59 Intake Total 990 / 990 300 / 300 Output Total 950 / 950 1200 / 1200 Balance 40 / 40 -900 / -900 Intake: IV 990 / 990 Sodium Chloride 0.9% 1,000 ml @ 990 / 990 150 mls/hr IV .[id number] [facility] Rx#: [id number] Oral 300 / 300 Output: Urine Catheter Amount 950 / 950 900 / 900 Void Amount 300 / 300 Other: Meal Lunch Percent of Meal Consumed Jello-100% 50% Feeding Ability Independent Additional comments: Constitutional; Afebrile, cooperative, alert, not in distress. Eyes- No icterus, , No periorbital swelling Ears- Ext ear normal, hearing normal to conversation. Neck- Midline trachea, supple Respiratory system: Air Entry equal on both sides, No crackles or wheezing, no rhonchi. CVS- Rate rhythm regular, S1,S2 heard, no gallop, no rub. Abdomen- Soft nontender abdomen, no organomegaly, no tenderness, no guarding or rigidity, WELDING MACHINE TENDER- AOOx3, moving all extremities, no gross focal deficit noted. Medical - DS: Data Labs on day of discharge: Labs from last 24 hours 06/27/18 06/27/18 03:50 03:50 WBC 4.4 L RBC 3.64 L Hgb 10.2 L Hct 30.9 L MCV 84.8 MCH 28.1 MCHC 33.1 RDW 13.0 Plt Count 206 MPV 8.9 Total Counted 100 Seg Neutrophils % 65 Band Neutrophils % Not Reportable Lymphocytes % 26 Monocytes % (Manual) 5 Eosinophils % (Manual) 2 Reactive Lymphocytes 2 Platelet Estimate Normal RBC Morphology Normal Sodium 142 Potassium 4.2 Chloride 112 H Carbon Dioxide 22 Anion Gap 8.0 BUN 34 H Creatinine 1.5 H GFR Calculation 36 Glucose 118 H Hemoglobin A1c 11.4 H Estim Average Glucose 280 Uric Acid 6.8 Calcium 9.0 Phosphorus 3.3 Magnesium 1.7 Total Bilirubin < 0.2 Direct Bilirubin < 0.2 GGT 13 AST 13 ALT 18 Alkaline Phosphatase 51 Lactate Dehydrogenase 187 Total Protein 5.3 L Albumin 3.1 L Globulin 2.2 Albumin/Globulin Ratio 1.4 Triglycerides 150 Preliminary micro results at discharge 12/21/17 13:23 Blood Culture - Preliminary Blood 12/21/17 13:04 Blood Culture - Preliminary Blood Medical - DS: A/P - Patient/Caregiver Discharge Instructions Activity: increase activity as tolerated Diet: Cardiac, Consistent Carbohydrate Additional Instructions: Please do not make sudden changes in posture if lying down please sit by the bed side for 30 seconds, then stand by the bed side for 30 seconds before leaving the bed side. If you feel dizzy or unsteady please sit back in the bed. Keep your self well hydrated Talk to your doctor with regards to referral to an dispatch officer Please buy a thigh high compression stocking set, You can buy these at the local pharmacy. Use them when you wake up in the morning and remove at bed time. Follow up with PCP in 1 week Take antibiotics as prescribed Go to the ER if worsening condition, chest pain, shortness of breath or any other acute concerns. Prescriptions: Cephalexin [Keflex] 500 mg PO BID #10 cap - Follow up Plan Follow up with: Shanae Mora ARNP [Primary Care Provider] - 12/31/17 1:00 pm (This appointment is with Shanae Vivas is out of the office.) Disposition: Home, Self-Care Prognosis: Fair Rehab Potential: Fair I certify that the patient requires SNF services: No Medical - DS: Qual - VTE Deep Vein Thrombosis/Pulmonary Embolism Present on Admission: No
== END 2017-12-23 15:30 | disposition home or self-care (01) ==
LOC: ICU 09:46 → ED 09:46 → ICU 12:25
PROVIDERS: ADMIT Internal Medicine; ATTEND Internal Medicine

== ENCOUNTER 2022-11-27 15:42 | Inpatient (IN) ==
--- NOTE | 2022-11-27 16:04 | Emergency Department Note ---
HPI General Chief complaint: Extremity Injury, Lower Stated complaint: Foot pain Time Seen by Provider: 11/27/22 15:54 Source: patient Mode of arrival: ambulatory Limitations: no limitations History of Present Illness HPI Narrative: Narrative: 72-year-old diabetic with renal failure who presents for medical clearance prior to a toe amputation tomorrow by Dr. Dunlap. She just finished dialysis prior to coming and feels relatively well, she has no complaints. Past medical history is positive for diabetes, ESRD, diabetic angiopathy, gangrene of the right foot. She states she just had an EKG done as an outpatient. Related Data Home Medications Medication Instructions Recorded Confirmed insulin glargine 100 unit/mL (3 See Rx Instructions .Route .COMPLEX 08/22/21 11/26/22 mL) subcutaneous pen (Lantus Solostar U-100 Insulin) Previous Rx's Medication Instructions Recorded aspirin 81 mg tablet,delayed 81 mg PO QDAY #60 tabs 08/15/15 release (Adult Low Dose Aspirin) insulin aspart U-100 100 unit/mL See Rx Instructions .Route 12/06/19 subcutaneous solution (Novolog .COMPLEX #10 mL U-100 Insulin aspart) denosumab 60 mg/mL subcutaneous 60 mg subcut [id number] #1 mL 03/28/20 syringe (Prolia) glucagon 1 mg/0.2 mL subcutaneous 1 mg (0.2 mL) subcut ONCE #0.2 mL 08/10/20 auto-injector cholecalciferol (vitamin D3) 100 100 mcg PO QDAY #90 tabs 09/05/20 mcg (4,000 unit) tablet Allergies Allergy/AdvReac Type Severity Reaction Status Date / Time Iodinated Contrast Media Allergy Severe Anaphylaxis Verified 11/26/22 12:06 [Iodinated Contrast Media - IV Dye] Review of Systems ROS ROS Narrative: Narrative: All systems ED: reviewed and negative except as stated. PFSH Narrative Patient History Narrative: Narrative: Medical/Surgical/Family History All Active Problems (Updated 11/27/22 @ 17:11 by Jay Jay Kidd MD) Indigestion (Chronic) Poor sleep (Chronic) Lesion of bladder (Chronic) Amputation of little toe (Chronic ~1998) Postmenopausal (Chronic) Low blood pressure (Chronic) Fatigue (Chronic) Long-term insulin use (Chronic) Proteinuria (Chronic) Hyperlipidemia (Chronic) Gastroparesis diabeticorum (Chronic) Iron deficiency anemia (Chronic) Vitamin D deficiency (Chronic) Secondary hyperparathyroidism of renal origin (Chronic) Persistent proteinuria (Chronic) Uncontrolled type 2 diabetes mellitus with insulin therapy (Chronic) Hyperuricemia (Chronic) Body mass index (bmi) 25.0-25.9, adult (Chronic) Syncope due to orthostatic hypotension (Acute) Scalp hematoma (Acute) Yeast infection (Chronic) Diverticulosis (Chronic) Vulvovaginal candidiasis (Chronic) Pyelonephritis, acute (Chronic) Diabetic retinopathy (Chronic) Abnormal findings on diagnostic imaging of lung (Chronic) Coronary artery disease (Chronic) Hemorrhoids (Chronic) Diabetic peripheral neuropathy (Chronic) Murmur, cardiac (Chronic) Osteopenia (Chronic) At risk for falls (Chronic) Renal osteodystrophy (Chronic) Body mass index 26.0-26.9, adult (Chronic) Shoulder pain, left (Chronic) Multinodular goiter (Chronic) Recurrent UTI (Chronic) Anemia of chronic disease (Chronic) GERD (gastroesophageal reflux disease) (Chronic) Wellness examination (Chronic) Diverticulosis of colon without hemorrhage (Chronic) History of hypoglycemia (Chronic) Medicare annual wellness visit, subsequent (Acute) Osteoporosis (Acute) Leg ulcer, left (Acute) COVID-19 (Acute) Hypoglycemia associated with diabetes (Acute) Syncope and collapse (Acute) Primary hypertension (Chronic) ESRD needing dialysis (Chronic) 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 At risk for falls Body mass index (bmi) 25.0-25.9, adult Body mass index 26.0-26.9, adult Coronary artery disease Diabetic peripheral neuropathy Diabetic retinopathy Diverticulosis Diverticulosis of colon without hemorrhage Fatigue Gastroparesis diabeticorum GERD (gastroesophageal reflux disease) Hemorrhoids History of hypoglycemia Hyperlipidemia Hyperuricemia Indigestion Iron deficiency anemia Lesion of bladder 2013 Long-term insulin use Low blood pressure Multinodular goiter Murmur, cardiac Osteopenia Persistent proteinuria Poor sleep Postmenopausal Proteinuria Pyelonephritis, acute Recurrent UTI Renal osteodystrophy Secondary hyperparathyroidism of renal origin Shoulder pain, left Uncontrolled type 2 diabetes mellitus with insulin therapy Vitamin D deficiency Vulvovaginal candidiasis Wellness examination Yeast infection Surgical History History of amputation of toe (~1998) Little toe History of appendectomy (~1965) 1966 History of colonoscopy (08/26/17) Dr Celeste-Hemorrhoids, diverticulosis, repeat 10 years History of surgical procedure 2017-Vascular Stents, 2013-Liasion in bladder S/P ear surgery ? gland in ear - 1966 Family History Father , Age 72 Alcoholism Sister Hypertension Diabetes mellitus History of intravascular stent placement Mother , Age 38 Cerebral hemorrhage Social History Smoking Status: Former smoker Alcohol Intake Frequency: holiday/special occasion only Substance Use: does not use Exam Narrative Narrative: Narrative: No acute distress; alert and oriented x3, answers questions cogently. Skin: I did not remove the bandage on her right foot; otherwise, skin is warm and dry, without exanthem. Has dialysis colored skin. Pulmonary: Clear to auscultation, equal bilaterally, without rales rhonchi or wheezes. CV: Regular rate and rhythm without murmurs clicks rubs or gallops. General Limitations: no limitations Course Course Course Narrative: Patient's chest x-ray and lab work are all essentially within normal limits. Hospitalist was called to admit the patient prior to surgery. Vital Signs Vital signs: Vital Signs Temperature 96.2 F L 11/27/22 15:45 Pulse Rate 78 11/27/22 15:45 Respiratory Rate 17 11/27/22 15:45 Blood Pressure 105/59 11/27/22 15:45 Pulse Oximetry (%) 99 11/27/22 15:45 Oxygen Delivery Method Room Air 11/27/22 15:45 Temperature 96.2 F L 11/27/22 15:45 Pulse Rate 78 11/27/22 15:45 Respiratory Rate 17 11/27/22 15:45 Blood Pressure 105/59 11/27/22 15:45 Pulse Oximetry (%) 99 11/27/22 15:45 Oxygen Delivery Method Room Air 11/27/22 15:45 MDM MDM Narrative Medical decision making narrative: Narrative: Discharge Plan Patient/Caregiver Discharge Instructions Pt seen by IMAGING MANAGER/PA only: No Clinical Impression: Gangrenous toe, Diabetic angiopathy Patient Disposition: Xfer As Inpt ([facility]) Follow up with: Solitario Pan PA-C [Primary Care Provider] - Prescriptions: No Action Novolog U-100 Insulin aspart 100 unit/mL solution See Rx Instructions .ROUTE .COMPLEX Qty: 10 12RF Rx Instructions: sliding scale Prolia 60 mg/mL syringe 60 mg SUB-Q [id number] Qty: 1 0RF aspirin [Adult Low Dose Aspirin] 81 mg tablet,delayed release (DR/EC) 81 mg PO QDAY Qty: 60 3RF cholecalciferol (vitamin D3) 100 mcg (4,000 unit) tablet 100 mcg PO QDAY Qty: 90 4RF Lantus Solostar U-100 Insulin 100 unit/mL (3 mL) insulin pen See Rx Instructions .ROUTE .COMPLEX Dose Instruction: INJECT 22 UNITS SUBCUTANEOUSLY ONCE DAILY IN THE MORNING Rx Instructions: INJECT 15 UNITS SUBCUTANEOUSLY ONCE DAILY IN THE MORNING glucagon 1 mg/0.2 mL auto-injector 1 mg SUB-Q ONCE Qty: 0.2 0RF Rx Instructions: as a single dose; may repeat once after 15 minutes if no response
[2022-11-27 16:17] LABS: POC Pro Time 11.8 (11.9-14.5)
[2022-11-27 16:24] LABS: POC Calcium, Ionized 1.06 (1.16-1.32); POC Creatinine 2.2 (0.6-1.2); POC Potassium 4.1 (3.3-5.1)
--- NOTE | 2022-11-27 16:28 | XRay Report ---
INDICATION: pre-op TECHNIQUE: AP portable semiupright chest x-ray COMPARISON: Previous chest x-rays dated 05/14/2022, 07/10/2021, 06/02/2020 FINDINGS: Lungs:Lungs are negative. No focal pulmonary parenchymal infiltrate or mass Heart, vascular:No significant cardiomegaly. Pulmonary vascularity is normal. No pulmonary edema or pulmonary congestion Mediastinum, ke:No mediastinal widening. No hilar mass Pleura:No pleural fluid. No pleural-based mass or calcification Skeletal:Negative. IMPRESSION: Negative AP chest x-ray Interpreted and Authenticated by: Bucky Cr 11/27/22
[2022-11-27 16:49] LABS: Basophils # (Auto) 0.04 K/mcL (0.00-0.30); Basophils % (Auto) 0.8 % (0.0-2.0); Eosinophils # (Auto) 0.07 K/mcL (0.00-0.70); Eosinophils % (Auto) 1.4 % (0.0-7.0); Hemoglobin 11.5 g/dL (11.2-15.7); Lymphocytes # (Auto) 1.17 K/mcL (1.50-4.80); Lymphocytes % (Auto) 23.5 % (15.5-49.0); Mean Cell Volume 89.2 fL (80.0-100.0); Mean Corpuscular HGB Conc 31.1 g/dL (31.0-36.0); Mean Platelet Volume 10.5 fL (8.8-12.5); Monocytes # (Auto) 0.37 K/mcL (0.10-0.90); Monocytes % (Auto) 7.4 % (1.0-12.0); Neutrophils % (Auto) 66.7 % (38.0-78.0); Platelet Count 194 K/mcL (140-440); RBC 4.15 M/mcL (3.59-5.38); Red Cell Distribution Width 14.5 % (11.5-14.5)
[2022-11-27 17:18] LABS: ALT/SGPT 11 U/L (<40); AST/SGOT 15 U/L (<32); Albumin 3.5 gm/dL (3.2-5.2); Albumin/Globulin Ratio 1.2 (1.0-2.3); Alkaline Phosphatase 104 U/L (39-117); Bilirubin,Total 0.4 mg/dL (0.1-1.0); Blood Urea Nitrogen 16 mg/dL (8-23); Calcium 8.7 mg/dL (8.6-10.4); Carbon Dioxide 31 mmol/L (22-30); Chloride 100 mmol/L (96-108); Glomerular Filtration Rate 28; Glucose 145 mg/dL (70-105)
--- NOTE | 2022-11-27 17:40 | Internal Med History&Physical ---
HPI History of Present Illness Patient information: Note initiated : 11/27/22 at 5:37 pm Service Date, if different from initiated Date: [] Patient: Ana Kovacs a 72 y/o F admitted on for Foot pain. Chief Complaint: [] History of present illness: Ms. Kovacs is a 72 year old F Presents to the ED sent in by Dr. Dunlap for gangrenous infection of the right foot with osteomyelitis. Per the podiatry notes from November 25 patient history was regarding right foot osteomyelitis with strong odor and sloughing of tissue when bandage was removed. Patient had MRI which showed osteomyelitis of the forefoot. The plan was to get a transmetatarsal amputation on Thursday and hopefully to a rehab facility postsurgically. Patient states she developed wound back in April which is continued to progress. She is been following with wound care. She saw Dr. Dunlap about a month ago. And then again last Thursday at which time he decided it needed amputation. She is also been on antibiotics outpatient last 1 was Augmentin but the infect ion seems to be worsened. She had an MRI done yesterday at [facility] which showed osteomyelitis. We are awaiting the report. She also is a dialysis patient and gets dialysis Thursday with Dr. Houston. Patient appeared to be stable in the ED. Nephrology was consulted for dialysis While in the hospital. Patient be admitted for osteomyelitis and gangrene of the foot failed outpatient therapy and also needing surgery. Patient will very likely be here for greater than 2 midnights. Review of Systems: Pertinent positives as above. Denies headache/fever/chills/nausea/vomiting/ chest or abdominal pain/cough/dyspnea/diarrhea. Remaining 10 point review of system reviewed negative PHYSICAL EXAM General: Alert, Awake, No acute Distress Eyes/N/T: EOMI, no scleral icterus, PERRL, Head/Neck: neck supple, full ROM, normocephalic atraumatic CV: RRR, No murmurs, normal s1/s2 Pulm: Clear b/l, no wheezing/rhonchi/rales, no respiratory distress Abd: soft, nontender, +BS x4 Ext: no clubbing/cyanosis/edema, nontender. Right foot in dressings Neuro: Alert, CN 2-12 grossly intact, no focal deficits, moves all extremities, , sensations intact b/l upper/lower Psychiatric: Skin: warm/dry, normal color PFSH PFSH All Active Problems (Updated 11/27/22 @ 18:05 by Anita Tatum MD) End-stage renal disease on hemodialysis (Chronic) Indigestion (Chronic) Poor sleep (Chronic) Lesion of bladder (Chronic) Amputation of little toe (Chronic ~1998) Postmenopausal (Chronic) Low blood pressure (Chronic) Fatigue (Chronic) Long-term insulin use (Chronic) Proteinuria (Chronic) Hyperlipidemia (Chronic) Gastroparesis diabeticorum (Chronic) Iron deficiency anemia (Chronic) Vitamin D deficiency (Chronic) Secondary hyperparathyroidism of renal origin (Chronic) Persistent proteinuria (Chronic) Uncontrolled type 2 diabetes mellitus with insulin therapy (Chronic) Hyperuricemia (Chronic) Body mass index (bmi) 25.0-25.9, adult (Chronic) Syncope due to orthostatic hypotension (Acute) Scalp hematoma (Acute) Yeast infection (Chronic) Diverticulosis (Chronic) Vulvovaginal candidiasis (Chronic) Pyelonephritis, acute (Chronic) Diabetic retinopathy (Chronic) Abnormal findings on diagnostic imaging of lung (Chronic) Coronary artery disease (Chronic) Hemorrhoids (Chronic) Diabetic peripheral neuropathy (Chronic) Murmur, cardiac (Chronic) Osteopenia (Chronic) At risk for falls (Chronic) Renal osteodystrophy (Chronic) Body mass index 26.0-26.9, adult (Chronic) Shoulder pain, left (Chronic) Multinodular goiter (Chronic) Recurrent UTI (Chronic) Anemia of chronic disease (Chronic) GERD (gastroesophageal reflux disease) (Chronic) Wellness examination (Chronic) Diverticulosis of colon without hemorrhage (Chronic) History of hypoglycemia (Chronic) Medicare annual wellness visit, subsequent (Acute) Osteoporosis (Acute) Leg ulcer, left (Acute) COVID-19 (Acute) Hypoglycemia associated with diabetes (Acute) Syncope and collapse (Acute) Primary hypertension (Chronic) 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 At risk for falls Body mass index (bmi) 25.0-25.9, adult Body mass index 26.0-26.9, adult Coronary artery disease Diabetic peripheral neuropathy Diabetic retinopathy Diverticulosis Diverticulosis of colon without hemorrhage Fatigue Gastroparesis diabeticorum GERD (gastroesophageal reflux disease) Hemorrhoids History of hypoglycemia Hyperlipidemia Hyperuricemia Indigestion Iron deficiency anemia Lesion of bladder 2013 Long-term insulin use Low blood pressure Multinodular goiter Murmur, cardiac Osteopenia Persistent proteinuria Poor sleep Postmenopausal Proteinuria Pyelonephritis, acute Recurrent UTI Renal osteodystrophy Secondary hyperparathyroidism of renal origin Shoulder pain, left Uncontrolled type 2 diabetes mellitus with insulin therapy Vitamin D deficiency Vulvovaginal candidiasis Wellness examination Yeast infection Surgical History History of amputation of toe (~1998) Little toe History of appendectomy (~1965) 1965 History of colonoscopy (08/26/17) Dr Celeste-Hemorrhoids, diverticulosis, repeat 10 years History of surgical procedure 2017-Vascular Stents, 2013-Liasion in bladder S/P ear surgery ? gland in ear - 1967 Family History Father , Age 72 Alcoholism Sister Hypertension Diabetes mellitus History of intravascular stent placement Mother , Age 38 Cerebral hemorrhage Social History marital status: occupational status: retired leisure activities: other smoking status: Former smoker alcohol intake frequency: holiday/special occasion only substance use type: does not use MEDS/ALLERGIES Home Medications and Allergies Home Medications Medication Instructions Recorded Confirmed Type aspirin 81 mg tablet,delayed 81 mg PO QDAY #60 tabs 08/15/15 11/27/22 Rx release (Adult Low Dose Aspirin) insulin aspart U-100 100 unit/mL See Rx Instructions .Route 12/06/19 11/27/22 Rx subcutaneous solution (Novolog .COMPLEX #10 mL U-100 Insulin aspart) denosumab 60 mg/mL subcutaneous 60 mg subcut [id number] #1 mL 03/28/20 11/27/22 Rx syringe (Prolia) glucagon 1 mg/0.2 mL subcutaneous 1 mg (0.2 mL) subcut ONCE #0.2 mL 08/10/20 11/27/22 Rx auto-injector cholecalciferol (vitamin D3) 100 100 mcg PO QDAY #90 tabs 09/05/20 11/27/22 Rx mcg (4,000 unit) tablet insulin glargine 100 unit/mL (3 See Rx Instructions .Route .COMPLEX 08/22/21 11/27/22 History mL) subcutaneous pen (Lantus Solostar U-100 Insulin) Allergies Allergy/AdvReac Type Severity Reaction Status Date / Time Iodinated Contrast Media Allergy Severe Anaphylaxis Verified 11/26/22 12:06 [Iodinated Contrast Media - IV Dye] EXAM Constitutional Vitals: Temp Pulse Resp BP Pulse Ox O2 Del Method 96.2 F L 56 L 17 105/85 100 Room Air 11/27/22 15:45 11/27/22 17:01 11/27/22 15:45 11/27/22 17:01 11/27/22 17:01 11/27/22 15:45 DATA Data Completed and Pending Labs: Labs from last 24 hours 11/27/22 11/27/22 11/27/22 16:20 16:16 16:16 WBC 5.0 RBC 4.15 Hgb 11.5 Hct 37.0 POC Hct 38.0 MCV 89.2 MCH 27.7 MCHC 31.1 RDW 14.5 Plt Count 194 MPV 10.5 Immature Gran % (Auto) 0.2 Neut % (Auto) 66.7 Lymph % (Auto) 23.5 Bailey % (Auto) 7.4 Eos % (Auto) 1.4 Baso % (Auto) 0.8 Lymph # (Auto) 1.17 L Bailey # (Auto) 0.37 Eos # (Auto) 0.07 Baso # (Auto) 0.04 Immature Gran # 0.01 Absolute Neutrophils 3.31 POC PT POC INR POC Sodium 138 Sodium 137 POC Potassium 4.1 Potassium 4.1 POC Chloride 98 Chloride 100 Carbon Dioxide 31 H POC Total CO2 31.0 H Anion Gap 6.0 L POC Anion Gap 14.0 POC BUN 19 BUN 16 Creatinine 1.8 H POC Creatinine 2.2 H GFR Calculation 28 Glucose 145 H POC Glucose 145 H Calcium 8.7 POC WB Ioniz Calcium 1.06 L Total Bilirubin 0.4 AST 15 ALT 11 Alkaline Phosphatase 104 Total Protein 6.5 Albumin 3.5 Globulin 3.0 Albumin/Globulin Ratio 1.2 11/27/22 16:14 WBC RBC Hgb Hct POC Hct MCV MCH MCHC RDW Plt Count MPV Immature Gran % (Auto) Neut % (Auto) Lymph % (Auto) Bailey % (Auto) Eos % (Auto) Baso % (Auto) Lymph # (Auto) Bailey # (Auto) Eos # (Auto) Baso # (Auto) Immature Gran # Absolute Neutrophils POC PT 11.8 L POC INR 1.0 POC Sodium Sodium POC Potassium Potassium POC Chloride Chloride Carbon Dioxide POC Total CO2 Anion Gap POC Anion Gap POC BUN BUN Creatinine POC Creatinine GFR Calculation Glucose POC Glucose Calcium POC WB Ioniz Calcium Total Bilirubin AST ALT Alkaline Phosphatase Total Protein Albumin Globulin Albumin/Globulin Ratio A/P Narrative A/P Narrative: A: *Right foot diabetic infection with osteomyelitis and gangrenous toes: Failed outpatient antibiotics *ESRD: *DM2 w/nephropathy: * P: -IV abx, pending surgical cxs -Dr. Dunlap for amputation -wound care consulted -obtain mri records -check a1c -basal (reduce while npo) and SSI -Nephrology for hemodialysis -Home medication reconciliation -PT/OT -ppx: Heparin (hold in AM) Time Spent With Patient Time: Total time spent is greater than 50% in coordination of care (as documented) at patient's floor/unit and/or counseling patient: Initial: Total time with patient: 75 - 90 minutes Attestation: Including extra time spent reviewing outside records and coordination with casting house laborer and Dr. Dunlap.
--- NOTE | 2022-11-27 18:13 | Nephrology Consult Note ---
HPI Date of Consult Consult Date: 11/27/22 Requesting physician: Jay Jay Kidd Primary Care Provider: Solitario Pan Consult Narrative Chief complaint: Right fooot osteomyelitis Reason for consult: End stage renal disease History of present illness: Ana Kovacs is a 72-year-old female with diabetes mellitus type 2, hypertension, end stage renal disease on hemodialysis presented to ED on 11/27/22 for right foot osteomyelitis. She is being admitted for transmetatarsal surgery. She received hemodialysis today. Nephrology consultation was requested for end stage renal disease. cc:: CC: Constitutional Constitutional: Present lethargy and weakness EENT Nose, mouth and throat: Absent nasal congestion or sore throat Cardiovascular Cardiovascular: Absent chest pain or palpatations Respiratory Respiratory: Absent dyspnea or wheezing Gastrointestinal Gastrointestinal: Absent nausea or vomiting Genitourinary Genitourinary: Absent dysuria or hematuria Musculoskeletal Additional comments: right foot osteomyelitis Integumentary Integumentary: Absent rash Neurological Neurological: Absent confusion Psychiatric Psychiatric: Absent as per HPI or panic attacks Hematologic/Lymphatic Hematologic/Lymphatic: Absent easy bleeding or easy bruising Allergic/Immunologic Allergic/Immunologic: Absent tongue swelling or uticaria PFSH PFSH All Active Problems (Updated 11/27/22 @ 18:05 by Anita Tatum MD) End-stage renal disease on hemodialysis (Chronic) Indigestion (Chronic) Poor sleep (Chronic) Lesion of bladder (Chronic) Amputation of little toe (Chronic ~1998) Postmenopausal (Chronic) Low blood pressure (Chronic) Fatigue (Chronic) Long-term insulin use (Chronic) Proteinuria (Chronic) Hyperlipidemia (Chronic) Gastroparesis diabeticorum (Chronic) Iron deficiency anemia (Chronic) Vitamin D deficiency (Chronic) Secondary hyperparathyroidism of renal origin (Chronic) Persistent proteinuria (Chronic) Uncontrolled type 2 diabetes mellitus with insulin therapy (Chronic) Hyperuricemia (Chronic) Body mass index (bmi) 25.0-25.9, adult (Chronic) Syncope due to orthostatic hypotension (Acute) Scalp hematoma (Acute) Yeast infection (Chronic) Diverticulosis (Chronic) Vulvovaginal candidiasis (Chronic) Pyelonephritis, acute (Chronic) Diabetic retinopathy (Chronic) Abnormal findings on diagnostic imaging of lung (Chronic) Coronary artery disease (Chronic) Hemorrhoids (Chronic) Diabetic peripheral neuropathy (Chronic) Murmur, cardiac (Chronic) Osteopenia (Chronic) At risk for falls (Chronic) Renal osteodystrophy (Chronic) Body mass index 26.0-26.9, adult (Chronic) Shoulder pain, left (Chronic) Multinodular goiter (Chronic) Recurrent UTI (Chronic) Anemia of chronic disease (Chronic) GERD (gastroesophageal reflux disease) (Chronic) Wellness examination (Chronic) Diverticulosis of colon without hemorrhage (Chronic) History of hypoglycemia (Chronic) Medicare annual wellness visit, subsequent (Acute) Osteoporosis (Acute) Leg ulcer, left (Acute) COVID-19 (Acute) Hypoglycemia associated with diabetes (Acute) Syncope and collapse (Acute) Primary hypertension (Chronic) 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 At risk for falls Body mass index (bmi) 25.0-25.9, adult Body mass index 26.0-26.9, adult Coronary artery disease Diabetic peripheral neuropathy Diabetic retinopathy Diverticulosis Diverticulosis of colon without hemorrhage Fatigue Gastroparesis diabeticorum GERD (gastroesophageal reflux disease) Hemorrhoids History of hypoglycemia Hyperlipidemia Hyperuricemia Indigestion Iron deficiency anemia Lesion of bladder 2013 Long-term insulin use Low blood pressure Multinodular goiter Murmur, cardiac Osteopenia Persistent proteinuria Poor sleep Postmenopausal Proteinuria Pyelonephritis, acute Recurrent UTI Renal osteodystrophy Secondary hyperparathyroidism of renal origin Shoulder pain, left Uncontrolled type 2 diabetes mellitus with insulin therapy Vitamin D deficiency Vulvovaginal candidiasis Wellness examination Yeast infection Surgical History History of amputation of toe (~1998) Little toe History of appendectomy (~1965) 1966 History of colonoscopy (08/26/17) Dr Celeste-Hemorrhoids, diverticulosis, repeat 10 years History of surgical procedure 2017-Vascular Stents, 2013-Liasion in bladder S/P ear surgery ? gland in ear - 1967 Family History Father , Age 72 Alcoholism Sister Hypertension Diabetes mellitus History of intravascular stent placement Mother , Age 38 Cerebral hemorrhage Social History marital status: occupational status: retired leisure activities: other smoking status: Former smoker alcohol intake frequency: holiday/special occasion only substance use type: does not use MEDS/ALLERGIES Home Medications and Allergies Home Medications Medication Instructions Recorded Confirmed Type aspirin 81 mg tablet,delayed 81 mg PO QDAY #60 tabs 08/15/15 11/26/22 Rx release (Adult Low Dose Aspirin) insulin aspart U-100 100 unit/mL See Rx Instructions .Route 12/06/19 11/26/22 Rx subcutaneous solution (Novolog .COMPLEX #10 mL U-100 Insulin aspart) denosumab 60 mg/mL subcutaneous 60 mg subcut [id number] #1 mL 03/28/20 11/26/22 Rx syringe (Prolia) glucagon 1 mg/0.2 mL subcutaneous 1 mg (0.2 mL) subcut ONCE #0.2 mL 08/10/20 11/26/22 Rx auto-injector cholecalciferol (vitamin D3) 100 100 mcg PO QDAY #90 tabs 09/05/20 11/26/22 Rx mcg (4,000 unit) tablet insulin glargine 100 unit/mL (3 See Rx Instructions .Route .COMPLEX 08/22/21 11/26/22 History mL) subcutaneous pen (Lantus Solostar U-100 Insulin) Allergies Allergy/AdvReac Type Severity Reaction Status Date / Time Iodinated Contrast Media Allergy Severe Anaphylaxis Verified 11/26/22 12:06 [Iodinated Contrast Media - IV Dye] Physical Examination Vital Signs Vital signs: Temp Pulse Resp BP Pulse Ox O2 Del Method 96.2 F L 71 17 130/60 98 Room Air 11/27/22 15:45 11/27/22 17:31 11/27/22 15:45 11/27/22 17:31 11/27/22 17:31 11/27/22 15:45 General Appearance General appearance: well-developed, well-nourished and chronically ill EENT EENT: mucous membranes dry Neck Neck: no JVD Respiratory Respiratory: clear Cardiovascular Cardiology: no edema Gastrointestinal Gastrointestinal: no tenderness Integumentary Integumentary: no rash Neurologic Neurologic: no focal deficit and alert and oriented x3 Psychiatric Psychiatric: mood/affect appropriate and cooperative Results Lab Results 11/27/22 16:16 11/27/22 16:16 Lab results: Most recent lab results Calcium 8.7 mg/dL (8.6-10.4) 11/27/22 16:16 A/P Assessment and plan (1) End-stage renal disease on hemodialysis: Assessment and plan: Ana Kovacs is a 72-year-old female with diabetes mellitus type 2, hypertension, end stage renal disease on hemodialysis presented to ED on 11/27/22 for right foot osteomyelitis. She is being admitted for transmetatarsal surgery. She received hemodialysis today. Nephrology consultation was requested for end stage renal disease. End stage renal disease on hemodialysis on Thursday, , Thursday at [facility]. Last hemodialysis on 11/27/22. Left arm AV fistula. Her primary primary health care nurse is Dr. Houston. I discussed the plan with him. No fluid overload, acid-base or electrolyte abnormalities. Recommendations/Plan: Next hemodialysis on Thursday (11/29/22) as outpatient or Thursday (12/01/22) as inpatient. Status: Chronic Time Spent With Patient Time: Total time spent is greater than 50% in coordination of care (as documented) at patient's floor/unit and/or counseling patient:
--- NOTE | 2022-11-27 18:47 | XRay Report ---
INDICATION: gangarene TECHNIQUE: AP, oblique, lateral right foot COMPARISON: Previous examinations dated 09/09/2022, 04/02/2022 FINDINGS: Transphalangeal amputation at the level of the right first distal phalanx. No acute bone destruction. There is extensive bone destruction within the second and third digits. Middle and distal phalanges are not present, presumably due to amputation. There is bone destruction in the proximal phalanges consistent with osteomyelitis. Previous amputation of the distal right fourth digit. No definite acute bone destruction. There is generalized soft tissue swelling consistent with cellulitis. No discrete gas bubbles. There is extensive atherosclerotic calcification IMPRESSION: 1. Post surgical change from prior amputations 2. Findings consistent with osteomyelitis in the second and third digit Interpreted and Authenticated by: Bucky Cr 11/27/22
[2022-11-27] MEDS ORDERED: DEXTROSE 50% 50 ML VIAL IV ONE (20:09)
[2022-11-27] MEDS ORDERED: DEXTROSE 50% 50 ML SYRINGE IV ONE (20:13)
[2022-11-27] MEDS ORDERED: MAGNESIUM SULFATE 2 GM/50 ML BAG IV PRN (20:41)
[2022-11-27] MEDS ORDERED: SENNOSIDES 1 TABLET PO PRN (20:41)
[2022-11-27] MEDS ORDERED: HYDROcodone/APAP 5/325MG TABLET PO PRN (20:41)
[2022-11-27] MEDS ORDERED: ACETAMINOPHEN 325 MG TABLET PO PRN (20:41)
[2022-11-27] MEDS ORDERED: VANCOMYCIN PER PHARMACY IV SCH (20:41)
[2022-11-27] MEDS ORDERED: POTASSIUM CHLORIDE 20 MEQ TABLET PO PRN ×2 (20:41)
[2022-11-27] MEDS ORDERED: POLYETHYLENE GLYCOL 3350 17 GM PACKET PO PRN (20:41)
[2022-11-27] MEDS ORDERED: POTASSIUM CHLORIDE 40 MEQ in DEXTROSE 5% IN WATER 500 ML IV PRN (20:41)
[2022-11-27] MEDS ORDERED: ONDANSETRON 4 MG/2 ML VIAL IV PRN (20:41)
[2022-11-27] MEDS ORDERED: morphine 4 MG/ML VIAL IV PRN (20:41)
[2022-11-27] MEDS ORDERED: DEXTROSE 31 GM ORAL.SUSP PO PRN (20:41)
[2022-11-27] MEDS ORDERED: IPRATROPIUM/ALBUTEROL 3 ML AMPUL.NEB NEB PRN (20:41)
[2022-11-27] MEDS: CEFEPIME 1 GM VIAL IV SCH (21:49)
[2022-11-27] MEDS: 0.9 % SODIUM CHLORIDE 10 ML SYRINGE IV SCH (21:50)
[2022-11-27] MEDS: INSULIN LISPRO 1 UNIT/0.01 ML UNIT SQ SCH (21:50)
[2022-11-27] MEDS: DOCUSATE SODIUM 100 MG CAPSULE PO SCH (21:50)
[2022-11-27] MEDS ORDERED: VANCOMYCIN 1,000 MG in 0.9 % SODIUM CHLORIDE 250 ML IV ONE (22:00)
[2022-11-27 22:36] LABS: Hemoglobin A1C 6.6 % Hgb (4.0-6.0)
[2022-11-28] MEDS: DEXTROSE 50% 50 ML VIAL IV PRN ×2 (03:00→05:39)
[2022-11-28] MEDS ORDERED: DEXTROSE 50% 50 ML SYRINGE IV ONE (05:40)
[2022-11-28 06:31] LABS: Basophils # (Auto) 0.05 K/mcL (0.00-0.30); Basophils % (Auto) 1.4 % (0.0-2.0); Eosinophils # (Auto) 0.14 K/mcL (0.00-0.70); Eosinophils % (Auto) 3.9 % (0.0-7.0); Hematocrit 33.8 % (34.1-44.9); Hemoglobin 10.4 g/dL (11.2-15.7); Lymphocytes # (Auto) 1.01 K/mcL (1.50-4.80); Lymphocytes % (Auto) 28.1 % (15.5-49.0); Mean Cell Volume 89.4 fL (80.0-100.0); Mean Corpuscular HGB Conc 30.8 g/dL (31.0-36.0); Mean Platelet Volume 10.8 fL (8.8-12.5); Monocytes # (Auto) 0.44 K/mcL (0.10-0.90); Monocytes % (Auto) 12.3 % (1.0-12.0); Platelet Count 178 K/mcL (140-440); RBC 3.78 M/mcL (3.59-5.38); Red Cell Distribution Width 14.5 % (11.5-14.5); WBC 3.6 K/mcL (4.5-11.0)
--- NOTE | 2022-11-28 06:42 | Orthopedic Consult Note ---
HPI Date of Consult Consult Date: 11/28/22 Requesting physician: Ryan Disla Primary Care Provider: Solitario Pan Consult Narrative Chief complaint: non-healing right foot wound Reason for consult: osteomyelitis right forefoot cc:: CC: Ryan Disla Review of Systems All systems: reviewed and no additional remarkable complaints except as stated Constitutional Constitutional: Present other Additional comments: denies sob and cp PFSH PFSH All Active Problems (Updated 11/28/22 @ 06:47 by Sanket Dunalp DPM) Diabetic foot ulcer with osteomyelitis (Acute) End-stage renal disease on hemodialysis (Chronic) Indigestion (Chronic) Poor sleep (Chronic) Lesion of bladder (Chronic) Amputation of little toe (Chronic ~1998) Postmenopausal (Chronic) Low blood pressure (Chronic) Fatigue (Chronic) Long-term insulin use (Chronic) Proteinuria (Chronic) Hyperlipidemia (Chronic) Gastroparesis diabeticorum (Chronic) Iron deficiency anemia (Chronic) Vitamin D deficiency (Chronic) Secondary hyperparathyroidism of renal origin (Chronic) Persistent proteinuria (Chronic) Uncontrolled type 2 diabetes mellitus with insulin therapy (Chronic) Hyperuricemia (Chronic) Body mass index (bmi) 25.0-25.9, adult (Chronic) Syncope due to orthostatic hypotension (Acute) Scalp hematoma (Acute) Yeast infection (Chronic) Diverticulosis (Chronic) Vulvovaginal candidiasis (Chronic) Pyelonephritis, acute (Chronic) Diabetic retinopathy (Chronic) Abnormal findings on diagnostic imaging of lung (Chronic) Coronary artery disease (Chronic) Hemorrhoids (Chronic) Diabetic peripheral neuropathy (Chronic) Murmur, cardiac (Chronic) Osteopenia (Chronic) At risk for falls (Chronic) Renal osteodystrophy (Chronic) Body mass index 26.0-26.9, adult (Chronic) Shoulder pain, left (Chronic) Multinodular goiter (Chronic) Recurrent UTI (Chronic) Anemia of chronic disease (Chronic) GERD (gastroesophageal reflux disease) (Chronic) Wellness examination (Chronic) Diverticulosis of colon without hemorrhage (Chronic) History of hypoglycemia (Chronic) Medicare annual wellness visit, subsequent (Acute) Osteoporosis (Acute) Leg ulcer, left (Acute) COVID-19 (Acute) Hypoglycemia associated with diabetes (Acute) Syncope and collapse (Acute) Primary hypertension (Chronic) 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 At risk for falls Body mass index (bmi) 25.0-25.9, adult Body mass index 26.0-26.9, adult Coronary artery disease Diabetic peripheral neuropathy Diabetic retinopathy Diverticulosis Diverticulosis of colon without hemorrhage Fatigue Gastroparesis diabeticorum GERD (gastroesophageal reflux disease) Hemorrhoids History of hypoglycemia Hyperlipidemia Hyperuricemia Indigestion Iron deficiency anemia Lesion of bladder 2013 Long-term insulin use Low blood pressure Multinodular goiter Murmur, cardiac Osteopenia Persistent proteinuria Poor sleep Postmenopausal Proteinuria Pyelonephritis, acute Recurrent UTI Renal osteodystrophy Secondary hyperparathyroidism of renal origin Shoulder pain, left Uncontrolled type 2 diabetes mellitus with insulin therapy Vitamin D deficiency Vulvovaginal candidiasis Wellness examination Yeast infection Surgical History History of amputation of toe (~1998) Little toe History of appendectomy (~1965) 1965 History of colonoscopy (08/26/17) Dr Celeste-Hemorrhoids, diverticulosis, repeat 10 years History of surgical procedure 2017-Vascular Stents, 2013-Liasion in bladder S/P ear surgery ? gland in ear - 1967 Family History Father , Age 72 Alcoholism Sister Hypertension Diabetes mellitus History of intravascular stent placement Mother , Age 38 Cerebral hemorrhage Social History marital status: occupational status: retired leisure activities: other smoking status: Former smoker alcohol intake frequency: holiday/special occasion only substance use type: does not use MEDS/ALLERGIES Home Medications and Allergies Home Medications Medication Instructions Recorded Confirmed Type aspirin 81 mg tablet,delayed 81 mg PO QDAY #60 tabs 08/15/15 11/27/22 Rx release (Adult Low Dose Aspirin) insulin aspart U-100 100 unit/mL See Rx Instructions .Route 12/06/19 11/27/22 Rx subcutaneous solution (Novolog .COMPLEX #10 mL U-100 Insulin aspart) denosumab 60 mg/mL subcutaneous 60 mg subcut [id number] #1 mL 03/28/20 11/27/22 Rx syringe (Prolia) glucagon 1 mg/0.2 mL subcutaneous 1 mg (0.2 mL) subcut ONCE #0.2 mL 08/10/20 11/27/22 Rx auto-injector cholecalciferol (vitamin D3) 100 100 mcg PO QDAY #90 tabs 09/05/20 11/27/22 Rx mcg (4,000 unit) tablet insulin glargine 100 unit/mL (3 See Rx Instructions .Route .COMPLEX 08/22/21 11/27/22 History mL) subcutaneous pen (Lantus Solostar U-100 Insulin) Allergies Allergy/AdvReac Type Severity Reaction Status Date / Time Iodinated Contrast Media Allergy Severe Anaphylaxis Verified 11/26/22 12:06 [Iodinated Contrast Media - IV Dye] Physical Examination Narrative Narrative: Narrative: Ankle & Foot right: Previous incision location: prior digital amputations right foot bone probing/ non-healing first 2nd Tenderness with palpation: ball of the foot Ankle pain worse with weight bearing: No Ankle pain relieved by non-weight bearing: No Foot pain worse with weight bearing: No Tingling/Numbness: foot, toes and other (sensory neuropathy to rearfoot. prior partial digital amputation with bone probing ulceration to first and second metatarsal phalangeal joints- wound to midfoot sub first ray) A/P Assessment and plan (1) Diabetic foot ulcer with osteomyelitis: Assessment and plan: pt to OR today for TMA right foot Status: Acute Plan 72 yo uncontrolled type 2 diabetic with ESRD- HD with MRI with osteomyelitis of right forefoot with prior non-healing partial digital amputations scheduled for right transmetatarsal amputation Sepsis Sepsis Identified: No Narrative A/P Narrative: 72yo uncontrolled type 2 diabetic with ESRD-HD Thu//Sat with septic joint right foot in July this year with resultant non-healing partial digital amputations with MRI evidence of forefoot osteomyelitis. Plan of Treatment: To OR today for TMA right foot.pt is scheduled for 6/2 TMA right foot and given ESRD and prior non-healing wounds of prior digital amputations and MRI evidence of distal forefoot osteomyelitis, is at high risk for BKA. I am very appreciative that we could have the patient admitted and be close to her HD. She lives by herself without help from family or friends will need rehab facility th at will allow her to be nwb and have access to her T/TH/Sat. hemodyalisis, She will also require 6 weeks of antibiotics. Pt is scheduled for right TMA this morning (). Risks alternatives, course and possibility of future amputation(s) were discussed with pt. Time Spent With Patient Time: Total time spent is greater than 50% in coordination of care (as documented) at patient's floor/unit and/or counseling patient: Subsequent: Total time with patient: Less than 25 minutes
[2022-11-28] MEDS: 0.9 % SODIUM CHLORIDE 10 ML SYRINGE IV SCH ×3 (06:57→21:42)
[2022-11-28] MEDS: INSULIN LISPRO 1 UNIT/0.01 ML UNIT SQ SCH ×4 (06:57→20:10)
[2022-11-28 07:01] LABS: ALT/SGPT 9 U/L (<40); AST/SGOT 13 U/L (<32); Albumin 2.8 gm/dL (3.2-5.2); Albumin/Globulin Ratio 1.1 (1.0-2.3); Alkaline Phosphatase 81 U/L (39-117); Bilirubin,Direct < 0.2 mg/dL (0-0.3); Bilirubin,Total 0.3 mg/dL (0.1-1.0); Blood Urea Nitrogen 19 mg/dL (8-23); Calcium 8.6 mg/dL (8.6-10.4); Carbon Dioxide 27 mmol/L (22-30); Chloride 106 mmol/L (96-108); Globulin 2.5 gm/dL (2.2-3.7); Glomerular Filtration Rate 19; Glucose 50 mg/dL (70-105); Lactate Dehydrogenase 192 U/L (135-225); Phosphorous 4.8 mg/dL (2.5-4.5); Triglycerides 42 mg/dL (<150); Uric Acid 3.7 mg/dL (2.5-8.0)
--- NOTE | 2022-11-28 07:06 | Nephrology Progress Note ---
SUBJECTIVE Subjective Patient information: Note initiated : 11/28/22 at 7:04 am Patient: Ana Kovacs a 72 y/o F admitted on 11/27/22 for Foot pain- Osteomyelitis,Gangrene. Chief Complaint: Right foot ulcer Pertinent ROS: Right foot ulcer Left arm AVF Constitutional Vitals: Vital Signs Temp Pulse Resp BP Pulse Ox O2 Del Method 97.5 F 90 16 131/50 94 Room Air 11/28/22 04:00 11/28/22 04:00 11/28/22 04:00 11/28/22 04:00 11/28/22 04:00 11/28/22 04:00 Period Temp Pulse Resp BP Sys/Lloyd Pulse Ox O2 Del Method O2 Flow Rate Last 24 Hr 96.2 F-97.5 F 56-90 16-18 105-172/50-139 88-100 Room Air-Room Air Intake and Output 11/27/22 11/28/22 11/28/22 19:59 03:59 11:59 Intake Total 250 Output Total 550 Balance 250 -550 Weight 140 lb 135 lb 9.6 oz Intake & Output: Intake & Output 11/27/22 11/28/22 11/28/22 19:59 03:59 11:59 Intake Total 250 Output Total 550 Balance 250 -550 Weight 140 lb 135 lb 9.6 oz Intake: IV 250 Vancomycin 1,000 mg In Sodium 250 Chloride 0.9% 250 ml @ 250 mls/ hr IV ONCE ONE Rx#:[id number] Output: Void Amount 550 Other: Urine Appearance Clear Urine Color Yellow General appearance: cooperative and no acute distress Head Head exam: Present normal inspection Eye Eye exam: Present normal appearance ENT ENT exam: Present mucous membranes moist Respiratory Respiratory exam: Absent respiratory distress Cardiovascular Cardiovascular exam: Present normal rate and rhythm GI/Abdominal GI/Abdominal exam: Present soft; Absent tenderness Extremities Exam Extremities exam: Absent joint swelling or pedal edema Neurological Exam Neurological exam: Present alert and oriented X3 Psychiatric Psychiatric exam: Present normal affect and normal mood Skin Skin exam: Present warm; Absent rash A/P Assessment and plan (1) End-stage renal disease on hemodialysis: Assessment and plan: Ana Kovacs is a 72-year-old female with diabetes mellitus type 2, hypertension, end stage renal disease on hemodialysis presented to ED on 11/27/22 for right foot osteomyelitis. She is being admitted for transmetatarsal surgery. She received hemodialysis today. Nephrology consultation was requested for end stage renal disease. End stage renal disease on hemodialysis on Thursday, , Thursday at [facility]. Last hemodialysis on 11/27/22. Left arm AV fistula. Her primary chairman ceo is Dr. Houston. I discussed the plan with him. No fluid overload, acid-base or electrolyte abnormalities. Recommendations/Plan: Next hemodialysis on Thursday (11/29/22) as outpatient or Thursday (12/01/22) as inpatient. Status: Chronic Narrative Plan of Treatment: To OR today for TMA right foot.pt is scheduled for 11/28 TMA right foot and given ESRD and prior non-healing wounds of prior digital amputations and MRI evidence of distal forefoot osteomyelitis, is at high risk for BKA. I am very appreciative that we could have the patient admitted and be close to her HD. She lives by herself without help from family or friends will need rehab facility that will allow her to be nwb and have access to her T/TH/Sat. hemodyalisis, She will also require 6 weeks of antibiotics. Pt is scheduled for right TMA this morning (). Risks alternatives, course and possibility of future amp utation(s) were discussed with pt. Time Spent With Patient Time: Total time spent is greater than 50% in coordination of care (as documented) at patient's floor/unit and/or counseling patient:
[2022-11-28] MEDS: CEFEPIME 1 GM VIAL IV SCH (07:09)
[2022-11-28] MEDS ORDERED: fentaNYL 100 MCG/2 ML VIAL IV ONE (07:42)
[2022-11-28] MEDS ORDERED: BUPIVACAINE PF 0.5% 10 ML VIAL ONE (07:42)
[2022-11-28] MEDS ORDERED: LIDOCAINE 2% 20 ML VIAL ONE (07:42)
[2022-11-28] MEDS ORDERED: LIDOCAINE 2% 20 ML VIAL SQ ONE (08:07)
[2022-11-28] MEDS ORDERED: DEXTROSE 50% 50 ML SYRINGE IV PRN (08:15)
--- NOTE | 2022-11-28 08:18 | Internal Med Progress Note ---
SUBJECTIVE Subjective Patient information: Note initiated : 11/28/22 at 8:14 am Service Date, if different from initiated Date: [] Patient: Ana Kovacs a 72 y/o F admitted on 11/27/22 for Foot pain- Osteomyelitis,Gangrene. Chief Complaint: [] Interval history: History of present illness: Ms. Kovacs is a 72 year old F Presents to the ED sent in by Dr. Dunlap for gangrenous infection of the right foot with osteomyelitis. Per the podiatry notes from November 25 patient history was regarding right foot osteomyelitis with strong odor and sloughing of tissue when bandage was removed. Patient had MRI which showed osteomyelitis of the forefoot. The plan was to get a transmetatarsal amputation on Thursday and hopefully to a rehab facility postsurgically. Patient states she developed wound back in April which is continued to progress. She is been following with wound care. She saw Dr. Dunlap about a month ago. And then again last Thursday at which time he decided it needed amputation. She is also been on antibiotics outpatient last 1 was Augmentin but the infection seems to be worsened. She had an MRI done yesterday at [facility] which showed osteomyelitis. We are awaiting the report. She also is a dialysis patient and gets dialysis Thursday with Dr. Houston. Patient appeared to be stable in the ED. Nephrology was consulted for dialysis While in the hospital. Patient be admitted for osteomyelitis and gangrene of the foot failed outpatient therapy and also needing surgery. Patient will very likely be here for greater than 2 midnights. 11/28 Patient status post right transmetatarsal amputation. Patient tolerated the procedure well. No acute events or overnight complaints. Patient got dialysis yesterday. Dialysis not available on Thursday and nephrology aware, they are okay for her to wait until Thursday for dialysis. Review of Systems: Pertinent positives as above. Denies headache/fe laureen/chills/nausea/vomiting/chest or abdominal pain/cough/dyspnea/diarrhea. PHYSICAL EXAM General: Alert, Awake, No acute Distress Eyes/N/T: EOMI, no scleral icterus, Head/Neck: neck supple, full ROM, CV: RRR, No murmurs, Pulm: Clear b/l, no wheezing/rhonchi/rales, no respiratory distress Abd: soft, nontender, +BS x4 Ext: no clubbing/cyanosis/edema, nontender. Right foot in surgical dressings Neuro: Alert, no focal deficits, moves all extremities, , sensations intact b/l upper/lower Psychiatric: Skin: warm/dry, normal color Constitutional Vitals: Vital Signs Temp Pulse Resp BP Pulse Ox O2 Del Method 98.2 F 70 16 120/53 99 Room Air 11/28/22 07:00 11/28/22 07:00 11/28/22 07:00 11/28/22 07:00 11/28/22 07:00 11/28/22 07:00 Period Temp Pulse Resp BP Sys/Lloyd Pulse Ox O2 Del Method O2 Flow Rate Last 24 Hr 96.2 F-98.2 F 56-90 16-18 105-172/50-139 88-100 Room Air-Room Air Intake and Output 11/27/22 11/28/22 11/28/22 19:59 03:59 11:59 Intake Total 250 Output Total 550 Balance 250 -550 Weight 63.503 kg 61.507 kg Intake & Output: Intake & Output 11/27/22 11/28/22 11/28/22 19:59 03:59 11:59 Intake Total 250 Output Total 550 Balance 250 -550 Weight 63.503 kg 61.507 kg Intake: IV 250 Vancomycin 1,000 mg In Sodium 250 Chloride 0.9% 250 ml @ 250 mls/ hr IV ONCE ONE Rx#:[id number] Output: Void Amount 550 Other: Urine Appearance Clear Urine Color Yellow OBJ DATA Labs 11/28/22 05:10 11/28/22 05:10 Labs: Abnormal Lab Results 11/28/22 11/28/22 11/27/22 05:10 05:10 16:20 WBC 3.6 L Hgb 10.4 L Hct 33.8 L MCHC 30.8 L [place] % (Auto) 12.3 H Lymph # (Auto) 1.01 L POC PT Carbon Dioxide POC Total CO2 31.0 H Anion Gap 7.0 L Creatinine 2.4 H POC Creatinine 2.2 H Glucose 50 L POC Glucose 145 H Hemoglobin A1c POC WB Ioniz Calcium 1.06 L Phosphorus 4.8 H Total Protein 5.3 L Albumin 2.8 L 11/27/22 11/27/22 11/27/22 16:16 16:16 16:16 WBC Hgb Hct MCHC [place] % (Auto) Lymph # (Auto) 1.17 L POC PT Carbon Dioxide 31 H POC Total CO2 Anion Gap 6.0 L Creatinine 1.8 H POC Creatinine Glucose 145 H POC Glucose Hemoglobin A1c 6.6 H POC WB Ioniz Calcium Phosphorus Total Protein Albumin 11/27/22 16:14 WBC Hgb Hct MCHC [place] % (Auto) Lymph # (Auto) POC PT 11.8 L Carbon Dioxide POC Total CO2 Anion Gap Creatinine POC Creatinine Glucose POC Glucose Hemoglobin A1c POC WB Ioniz Calcium Phosphorus Total Protein Albumin Meds: Medications Acetaminophen (Acetaminophen 325 Mg Tablet) 650 mg PO Q6HP PRN; Protocol PRN Reason: Per Pain Protocol/Fever > 101 Hydrocodone Bitart/Acetaminophen (Hydrocodone/Apap 5/325mg Tablet) 1 tab PO Q4HP PRN PRN Reason: PAIN LEVEL 3-6 Albuterol/Ipratropium (Ipratropium/Albuterol 3 Ml Ampul.Neb) 3 ml NEB Q4HP PRN PRN Reason: Shortness Of Breath Cefepime HCl (Cefepime 1 Gm Vial) 1 gm IV Q24H [facility]; Protocol Last Admin: 11/28/22 07:09 Dose: 1 gm Dextrose (Dextrose 50% 50 Ml Syringe) 0 ml IV UD PRN PRN Reason: Per Sliding Scale Diagnostic Test (Pha) (Accu-Chek 1 Each Strip) 1 each FS ACHS [facility] Last Admin: 11/28/22 05:58 Dose: 1 each Docusate Sodium (Docusate Sodium 100 Mg Capsule) 100 mg PO BID [facility] Last Admin: 11/27/22 21:50 Dose: Not Given Glucose (Dextrose 31 Gm Oral.Susp) 15 gm PO PRN PRN PRN Reason: Hypoglycemia Heparin Sodium (Porcine) (Heparin 5,000 Unit/Ml Vial) 5,000 unit SQ Q12 [facility] Heparin Sodium (Porcine) (Heparin 5,000 Unit/Ml Vial) 5,000 unit SQ Q12 ONE Stop: 11/28/22 21:01 Potassium Chloride 40 meq/ (Dextrose) 520 mls @ 130 mls/hr IV UD PRN PRN Reason: Potassium < 3 Magnesium Sulfate (Magnesium Sulfate) 2 gm in 50 mls @ 50 mls/hr IV UD PRN PRN Reason: Magnesium </= 1.6 Insulin Glargine (Insulin Glargine, Human 1 Unit/0.01 Ml) 8 unit SQ DAILY [facility] Insulin Human Lispro (Insulin Lispro 1 Unit/0.01 Ml Unit) 0 unit SQ ACHS [facility]; Protocol Last Admin: 11/28/22 06:57 Dose: Not Given Morphine Sulfate (Morphine 4 Mg/Ml Vial) 0 mg IV Q3HP PRN PRN Reason: Pain Ondansetron HCl (Ondansetron 4 Mg/2 Ml Vial) 4 mg IV Q4HP PRN PRN Reason: Nausea And Vomiting Polyethylene Glycol (Polyethylene Glycol 3350 17 Gm Packet) 17 gm PO DAILYP PRN PRN Reason: Constipation Potassium Chloride (Potassium Chloride 20 Meq Tablet) 40 meq PO UD PRN PRN Reason: Potssium is 3-3.5 Potassium Chloride (Potassium Chloride 20 Meq Tablet) 40 meq PO UD PRN PRN Reason: Potassium < 3 Senna (Sennosides 1 Tablet) 2 tab PO DAILYP PRN PRN Reason: Constipation Sodium Chloride (0.9 % Sodium Chloride 10 Ml Syringe) 10 ml IV Q8 [facility] Last Admin: 11/28/22 06:57 Dose: Not Given Vancomycin HCl (Vancomycin Per Pharmacy) 1 order IV UD [facility]; Protocol A/P Narrative A/P Narrative: A: *Right foot diabetic infection w/osteomyelitis of metatarsals & gangrenous toes: Failed outpatient antibiotics *ESRD: *Anemia, chronic: *DM2 w/nephropathy: -A1C 6.6 P: -cefepime for h/o pseudomonas, vanco pending surgical cx's -Dr. Dunlap for amputation -wound care consulted -obtain mri records -basal (reduce while npo) and SSI -Nephrology for hemodialysis -PT/OT -ppx: Heparin (hold in AM) DNR Plan of Treatment: To OR today for TMA right foot.pt is scheduled for 6/2 TMA right foot and given ESRD and prior non-healing wounds of prior digital amputations and MRI evidence of distal forefoot osteomyelitis, is at high risk for BKA. I am very appreciative that we could have the patient admitted and be close to her HD. She lives by herself without help from family or friends will need rehab facility that will allow her to be nwb and have access to her T//Sat. hemodyalisis, She will also require 6 weeks of antibiotics. Pt is scheduled for right TMA this morning (). Risks alternatives, course and possibility of future amputation(s) were discussed with pt. Time Spent With Patient Time: Total time spent is greater than 50% in coordination of care (as documented) at patient's floor/unit and/or counseling patient: Subsequent: Total time with patient: 50 - 65 Minutes QUALITY Stroke Symptom Onset Unknown: No VTE Deep Vein Thrombosis/Pulmonary Embolism Present on Admission: No
[2022-11-28] MEDS ORDERED: NALOXONE HCL 0.4 MG/ML VIAL IV PRN (09:06)
[2022-11-28] MEDS ORDERED: fentaNYL 100 MCG/2 ML VIAL IV PRN (09:06)
[2022-11-28] MEDS ORDERED: IPRATROPIUM/ALBUTEROL 3 ML AMPUL.NEB NEB PRN (09:06)
--- NOTE | 2022-11-28 09:36 | Brief Operative Note ---
Brief Operative Note Date of procedure: 11/28/22 Pre-op diagnosis: osteomyelitis right forefoot Post-op diagnosis: same Procedure: right foot transmetatarsal amputation with primary closure Grafts/Implants: No Anesthesia: MAC Findings: good bleeding tissues with large, thick flap, pt has EMELY drain that will be removed tomorrow. Complications: none Surgeon: Sanket Dunlap Estimated blood loss (cc): 200 Tourniquet Time (Minutes): 24 Specimens Removed/Pathology: other (1)wound bone culture pre-amputation 2) bone culture (clean) first metatarsal stump post amputation) Condition: stable Disposition: floor
[2022-11-28] MEDS: DOCUSATE SODIUM 100 MG CAPSULE PO SCH ×2 (10:27→20:09)
[2022-11-28] MEDS: INSULIN GLARGINE, HUMAN 1 UNIT/0.01 ML SQ SCH (10:27)
[2022-11-28] MEDS ORDERED: HEPARIN 5,000 UNIT/ML VIAL SQ ONE (21:00)
[2022-11-29 06:06] LABS: Basophils # (Auto) 0.06 K/mcL (0.00-0.30); Basophils % (Auto) 1.2 % (0.0-2.0); Eosinophils # (Auto) 0.18 K/mcL (0.00-0.70); Eosinophils % (Auto) 3.7 % (0.0-7.0); Hematocrit 28.3 % (34.1-44.9); Hemoglobin 8.5 g/dL (11.2-15.7); Lymphocytes # (Auto) 1.17 K/mcL (1.50-4.80); Lymphocytes % (Auto) 24.3 % (15.5-49.0); Mean Platelet Volume 10.4 fL (8.8-12.5); Monocytes # (Auto) 0.42 K/mcL (0.10-0.90); Monocytes % (Auto) 8.7 % (1.0-12.0); Neutrophils % (Auto) 61.9 % (38.0-78.0); Platelet Count 162 K/mcL (140-440); RBC 3.11 M/mcL (3.59-5.38); Red Cell Distribution Width 14.7 % (11.5-14.5); WBC 4.8 K/mcL (4.5-11.0)
[2022-11-29 06:47] LABS: ALT/SGPT 8 U/L (<40); AST/SGOT 11 U/L (<32); Albumin 2.8 gm/dL (3.2-5.2); Albumin/Globulin Ratio 1.3 (1.0-2.3); Alkaline Phosphatase 83 U/L (39-117); Bilirubin,Direct < 0.2 mg/dL (0-0.3); Bilirubin,Total 0.2 mg/dL (0.1-1.0); Blood Urea Nitrogen 36 mg/dL (8-23); Calcium 8.8 mg/dL (8.6-10.4); Carbon Dioxide 28 mmol/L (22-30); Chloride 102 mmol/L (96-108); Globulin 2.2 gm/dL (2.2-3.7); Glomerular Filtration Rate 15; Glucose 239 mg/dL (70-105); Lactate Dehydrogenase 150 U/L (135-225); Triglycerides 75 mg/dL (<150); Uric Acid 5.2 mg/dL (2.5-8.0)
--- NOTE | 2022-11-29 06:59 | Nephrology Progress Note ---
SUBJECTIVE Subjective Patient information: Note initiated : 11/29/22 at 6:57 am Patient: Ana Kovacs 72 y/o F admitted on 11/27/22 for Foot pain- Osteomyelitis,Gangrene. Chief Complaint: Weakness Pertinent ROS: Weakness Constitutional Vitals: Vital Signs Temp Pulse Resp BP Pulse Ox O2 Del Method O2 Flow Rate 98.2 F 88 16 117/62 96 Room Air 0 11/29/22 03:45 11/29/22 03:45 11/29/22 03:45 11/29/22 03:45 11/29/22 03:45 11/29/22 03:45 11/28/22 10:09 Period Temp Pulse Resp BP Sys/Lloyd Pulse Ox O2 Del Method O2 Flow Rate Last 24 Hr 96.9 F-98.3 F 64-88 11-18 80-137/44-80 94-100 Room Air-Room Air 0-0 Intake and Output 11/28/22 11/29/22 11/29/22 19:59 03:59 11:59 Intake Total 480 400 Output Total 30 450 15 Balance 450 -50 -15 Weight 135 lb 9.6 oz 135 lb 6.4 oz Intake & Output: Intake & Output 11/28/22 11/29/22 11/29/22 19:59 03:59 11:59 Intake Total 480 400 Output Total 30 450 15 Balance 450 -50 -15 Weight 135 lb 9.6 oz 135 lb 6.4 oz Intake: Oral 480 400 Output: Drainage 30 Right Foot EMELY Drain 30 Drainage 15 Right Foot EMELY Drain 15 Void Amount 450 Other: Meal Lunch Dinner Percent of Meal Consumed 100% 100% Feeding Ability Independent Independent Urine Appearance Clear Clear Urine Color Yellow Yellow Stool Size Moderate Stool Color Brown Stool Consistency Normal for Patient Soft # Voids 1 1 # Bowel Movements 2 General appearance: cooperative and no acute distress Head Head exam: Present normal inspection Eye Eye exam: Present normal appearance ENT ENT exam: Present mucous membranes moist Respiratory Respiratory exam: Absent respiratory distress Cardiovascular Cardiovascular exam: Present normal rate and rhythm GI/Abdominal GI/Abdominal exam: Present soft; Absent tenderness Extremities Exam Extremities exam: Absent joint swelling or pedal edema Neurological Exam Neurological exam: Present alert and oriented X3 Psychiatric Psychiatric exam: Present normal affect and normal mood Skin Skin exam: Present warm; Absent rash A/P Assessment and plan (1) End-stage renal disease on hemodialysis: Assessment and plan: Ana Kovacs is a 72-year-old female with diabetes mellitus type 2, hypertension, end stage renal disease on hemodialysis presented to ED on 11/27/22 for right foot osteomyelitis. She is being admitted for transmetatarsal surgery. She received hemodialysis today. Nephrology consultation was requested for end stage renal disease. End stage renal disease on hemodialysis on Thursday, , Thursday at [facility]. Last hemodialysis on 11/27/22. Left arm AV fistula. Her primary floor coverer apprentice is Dr. Houston. I discussed the plan with him. No fluid overload. Hyperkalemia. Recommendations/Plan: Renal diet ordered. Kayexalate 30 g PO x 1 for hyperkalemia. Lokelma is not available in hospital formulary. It is requested for future use. Next hemodialysis on Thursday (12/01/22) as inpatient. Status: Chronic Narrative Plan of Treatment: To OR today for TMA right foot.pt is scheduled for 11/28 TMA right foot and given ESRD and prior non-healing wounds of prior digital amputations and MRI evidence of distal forefoot osteomyelitis, is at high risk for BKA. I am very appreciative that we could have the patient admitted and be close to her HD. She lives by herself without help from family or friends will need rehab facility that will allow her to be nwb and have access to her T/TH/Sat. hemodyalisis, She will also require 6 weeks of antibiotics. Pt is scheduled for right TMA this morning (). Risks alternatives, course and possibility of future amputation(s) were discussed with pt. Time Spent With Patient Time: Total time spent is greater than 50% in coordination of care (as documented) at patient's floor/unit and/or counseling patient:
[2022-11-29] MEDS: 0.9 % SODIUM CHLORIDE 10 ML SYRINGE IV SCH ×3 (07:11→20:44)
[2022-11-29] MEDS: INSULIN LISPRO 1 UNIT/0.01 ML UNIT SQ SCH ×4 (07:22→20:44)
[2022-11-29] MEDS ORDERED: SODIUM POLYSTYRENE SULFONATE 15 GM/60 ML SUSPENSION PO ONE (07:40)
[2022-11-29] MEDS: DOCUSATE SODIUM 100 MG CAPSULE PO SCH ×2 (08:19→20:44)
[2022-11-29] MEDS: HEPARIN 5,000 UNIT/ML VIAL SQ SCH ×2 (08:21→20:44)
[2022-11-29] MEDS: INSULIN GLARGINE, HUMAN 1 UNIT/0.01 ML SQ SCH (08:22)
[2022-11-29] MEDS: CEFEPIME 1 GM VIAL IV SCH (08:22)
--- NOTE | 2022-11-29 08:49 | Internal Med Progress Note ---
SUBJECTIVE Subjective Patient information: Note initiated : 11/29/22 at 8:45 am Service Date, if different from initiated Date: [] Patient: Ana Kovacs a 72 y/o F admitted on 11/27/22 for Foot pain- Osteomyelitis,Gangrene. Chief Complaint: [] Interval history: History of present illness: Ms. Kovacs is a 72 year old F Presents to the ED sent in by Dr. Dunlap for gangrenous infection of the right foot with osteomyelitis. Per the podiatry notes from November 25 patient history was regarding right foot osteomyelitis with strong odor and sloughing of tissue when bandage was removed. Patient had MRI which showed osteomyelitis of the forefoot. The plan was to get a transmetatarsal amputation on Thursday and hopefully to a rehab facility postsurgically. Patient states she developed wound back in April which is continued to progress. She is been following with wound care. She saw Dr. Dunlap about a month ago. And then again last Thursday at which time he decided it needed amputation. She is also been on antibiotics outpatient last 1 was Augmentin but the infection seems to be worsened. She had an MRI done yesterday at [facility] which showed osteomyelitis. We are awaiting the report. She also is a dialysis patient and gets dialysis Thursday with Dr. Houston. Patient appeared to be stable in the ED. Nephrology was consulted for dialysis While in the hospital. Patient be admitted for osteomyelitis and gangrene of the foot failed outpatient therapy and also needing surgery. Patient will very likely be here for greater than 2 midnights. 6 Patient status post right transmetatarsal amputation. Patient tolerated the procedure well. No acute events or overnight complaints. Patient got dialysis yesterday. Dialysis not available on Thursday and nephrology aware, they are okay for her to wait until Thursday for dialysis. 11/29 Patient seems a feeling well. No overnight event or new complaints. Awaiting surgical cultures. Postop anemia, Monitor. Mildly elevated potassium. Kayexalate given by nephrology. Next dialysis on Thursday. De-escalate antibiotics once cultures returned Review of Systems: Pertinent positives as above. Denies headache/fever/chills/nausea/vomiting/chest or abdominal pain/cough/dyspnea/diarrhea. PHYSICAL EXAM General: Alert, Awake, No acute Distress Eyes/N/T: EOMI, no scleral icterus, Head/Neck: neck supple, full ROM, CV: RRR, No murmurs, Pulm: Clear b/l, no wheezing/rhonchi/rales, no respiratory distress Abd: soft, nontender, +BS x4 Ext: no clubbing/cyanosis/edema, nontender. Right foot in surgical dressings Neuro: Alert, no focal deficits, moves all extremities, , sensations intact b/l upper/lower Psychiatric: Skin: warm/dry, normal color Constitutional Vitals: Vital Signs Temp Pulse Resp BP Pulse Ox O2 Del Method O2 Flow Rate 98.6 F 75 16 136/54 100 Room Air 0 11/29/22 07:42 11/29/22 07:42 11/29/22 07:42 11/29/22 07:42 11/29/22 07:42 11/29/22 07:42 11/28/22 10:09 Period Temp Pulse Resp BP Sys/Lloyd Pulse Ox O2 Del Method O2 Flow Rate Last 24 Hr 96.9 F-98.6 F 64-88 11-18 80-137/44-80 94-100 Room Air-Room Air 0-0 Intake and Output 11/28/22 11/29/22 11/29/22 19:59 03:59 11:59 Intake Total 480 400 Output Total 30 450 30 Balance 450 -50 -30 Weight 61.507 kg 61.416 kg Intake & Output: Intake & Output 11/28/22 11/29/22 11/29/22 19:59 03:59 11:59 Intake Total 480 400 Output Total 30 450 30 Balance 450 -50 -30 Weight 61.507 kg 61.416 kg Intake: Oral 480 400 Output: Drainage 30 Right Foot EMELY Drain 30 Drainage 30 Right Foot EMELY Drain 30 Void Amount 450 Other: Meal Lunch Dinner Percent of Meal Consumed 100% 100% Feeding Ability Independent Independent Urine Appearance Clear Clear Urine Color Yellow Yellow Stool Size Moderate Stool Color Brown Stool Consistency Normal for Patient Soft # Voids 1 1 # Bowel Movements 2 OBJ DATA Labs 11/29/22 04:58 11/29/22 04:58 Labs: Abnormal Lab Results 11/29/22 11/29/22 11/28/22 04:58 04:58 05:10 WBC RBC 3.11 L Hgb 8.5 L Hct 28.3 L MCHC 30.0 L RDW 14.7 H [place] % (Auto) Lymph # (Auto) 1.17 L POC PT Potassium 5.3 H Carbon Dioxide POC Total CO2 Anion Gap 7.0 L BUN 36 H Creatinine 3.0 H 2.4 H POC Creatinine Glucose 239 H 50 L POC Glucose Hemoglobin A1c POC WB Ioniz Calcium Phosphorus 5.0 H 4.8 H Total Protein 5.0 L 5.3 L Albumin 2.8 L 2.8 L 11/28/22 11/27/22 11/27/22 05:10 16:20 16:16 WBC 3.6 L RBC Hgb 10.4 L Hct 33.8 L MCHC 30.8 L RDW [place] % (Auto) 12.3 H Lymph # (Auto) 1.01 L POC PT Potassium Carbon Dioxide POC Total CO2 31.0 H Anion Gap BUN Creatinine POC Creatinine 2.2 H Glucose POC Glucose 145 H Hemoglobin A1c 6.6 H POC WB Ioniz Calcium 1.06 L Phosphorus Total Protein Albumin 11/27/22 11/27/22 11/27/22 16:16 16:16 16:14 WBC RBC Hgb Hct MCHC RDW [place] % (Auto) Lymph # (Auto) 1.17 L POC PT 11.8 L Potassium Carbon Dioxide 31 H POC Total CO2 Anion Gap 6.0 L BUN Creatinine 1.8 H POC Creatinine Glucose 145 H POC Glucose Hemoglobin A1c POC WB Ioniz Calcium Phosphorus Total Protein Albumin Meds: Medications Acetaminophen (Acetaminophen 325 Mg Tablet) 650 mg PO Q6HP PRN; Protocol PRN Reason: Per Pain Protocol/Fever > 101 Hydrocodone Bitart/Acetaminophen (Hydrocodone/Apap 5/325mg Tablet) 1 tab PO Q4HP PRN PRN Reason: PAIN LEVEL 3-6 Last Admin: 11/28/22 20:09 Dose: 1 tab Albuterol/Ipratropium (Ipratropium/Albuterol 3 Ml Ampul.Neb) 3 ml NEB Q4HP PRN PRN Reason: Shortness Of Breath Cefepime HCl (Cefepime 1 Gm Vial) 1 gm IV Q24H [facility]; Protocol Last Admin: 11/29/22 08:22 Dose: 1 gm Dextrose (Dextrose 50% 50 Ml Syringe) 0 ml IV UD PRN PRN Reason: Per Sliding Scale Diagnostic Test (Pha) (Accu-Chek 1 Each Strip) 1 each FS ACHS [facility] Last Admin: 11/29/22 07:14 Dose: 1 each Docusate Sodium (Docusate Sodium 100 Mg Capsule) 100 mg PO BID [facility] Last Admin: 11/29/22 08:19 Dose: Not Given Glucose (Dextrose 31 Gm Oral.Susp) 15 gm PO PRN PRN PRN Reason: Hypoglycemia Heparin Sodium (Porcine) (Heparin 5,000 Unit/Ml Vial) 5,000 unit SQ Q12 [facility] Last Admin: 11/29/22 08:21 Dose: 5,000 unit Potassium Chloride 40 meq/ (Dextrose) 520 mls @ 130 mls/hr IV UD PRN PRN Reason: Potassium < 3 Magnesium Sulfate (Magnesium Sulfate) 2 gm in 50 mls @ 50 mls/hr IV UD PRN PRN Reason: Magnesium </= 1.6 Insulin Glargine (Insulin Glargine, Human 1 Unit/0.01 Ml) 8 unit SQ DAILY [facility] Last Admin: 11/29/22 08:22 Dose: 1 units Insulin Human Lispro (Insulin Lispro 1 Unit/0.01 Ml Unit) 0 unit SQ [facility]; Protocol Last Admin: 11/29/22 07:22 Dose: 6 units Morphine Sulfate (Morphine 4 Mg/Ml Vial) 0 mg IV Q3HP PRN PRN Reason: Pain Ondansetron HCl (Ondansetron 4 Mg/2 Ml Vial) 4 mg IV Q4HP PRN PRN Reason: Nausea And Vomiting Polyethylene Glycol (Polyethylene Glycol 3350 17 Gm Packet) 17 gm PO DAILYP PRN PRN Reason: Constipation Potassium Chloride (Potassium Chloride 20 Meq Tablet) 40 meq PO UD PRN PRN Reason: Potssium is 3-3.5 Potassium Chloride (Potassium Chloride 20 Meq Tablet) 40 meq PO UD PRN PRN Reason: Potassium < 3 Senna (Sennosides 1 Tablet) 2 tab PO DAILYP PRN PRN Reason: Constipation Sodium Chloride (0.9 % Sodium Chloride 10 Ml Syringe) 10 ml IV Q8 [facility] Last Admin: 11/29/22 07:11 Dose: Not Given Vancomycin HCl (Vancomycin Per Pharmacy) 1 order IV UD [facility]; Protocol A/P Narrative A/P Narrative: A: *Right foot diabetic infection w/osteomyelitis of metatarsals & gangrenous toes: Failed outpatient antibiotics -recent MRI at [facility] showing osteo of forefoot -s/p transtarsal amputation *ESRD: *Hyperkalemia, mild: monitor *Anemia, acute on chronic: 2/2 procedure, monitor *DM2 w/nephropathy: -A1C 6.6 P: -currently on cefepime for h/o pseudomonas, vanco pending surgical bone cx's -Dr. Dunlap following -ID consult -wound care consulted -obtain mri records -basal (reduced for low BG) and SSI -Nephrology for hemodialysis, next on thursday, kayexalate ordered -PT/OT -CM for placement -ppx: Heparin DNR Plan of Treatment: To OR today for TMA right foot.pt is scheduled for 11/28 TMA right foot and given ESRD and prior non-healing wounds of prior digital amputations and MRI evidence of distal forefoot osteomyelitis, is at high risk for BKA. I am very appreciative that we could have the patient admitted and be close to her HD. She lives by herself without help from family or friends will need rehab facility that will allow her to be nwb and have access to her T/TH/Sat. hemodyalisis, She will also require 6 weeks of antibiotics. Pt is scheduled for right TMA this morning (). Risks alternatives, course and possibility of future amputation(s) were discussed with pt. Time Spent With Patient Time: Total time spent is greater than 50% in coordination of care (as documented) at patient's floor/unit and/or counseling patient: Subsequent: Total time with patient: 35 - 49 minutes QUALITY Stroke Symptom Onset Unknown: No VTE Deep Vein Thrombosis/Pulmonary Embolism Present on Admission: No
--- NOTE | 2022-11-29 09:53 | Orthopedic Progress Note ---
SUBJECTIVE Subjective Patient information: Note initiated : 11/29/22 at 9:39 am Service Date, if different from initiated Date: [] Patient: Ana Kovacs 72 y/o F admitted on 11/27/22 for Foot pain- Osteomyelitis,Gangrene. Chief Complaint: PO DAy 1 right TMA[] Principal diagnosis: osteomyelitis right forefoot Interval history: Doing well no sob/cp/calve pain. Pain controlled. Pertinent ROS: eating well Constitutional Vitals: Vital Signs Temp Pulse Resp BP Pulse Ox O2 Del Method O2 Flow Rate 98.6 F 75 16 136/54 100 Room Air 0 11/29/22 07:42 11/29/22 07:42 11/29/22 07:42 11/29/22 07:42 11/29/22 07:42 11/29/22 07:42 11/28/22 10:09 Period Temp Pulse Resp BP Sys/Lloyd Pulse Ox O2 Del Method O2 Flow Rate Last 24 Hr 96.9 F-98.6 F 64-88 11-18 80-137/44-80 94-100 Room Air-Room Air 0-0 Intake and Output 11/28/22 11/29/22 11/29/22 19:59 03:59 11:59 Intake Total 480 400 Output Total 30 450 30 Balance 450 -50 -30 Weight 135 lb 9.6 oz 135 lb 6.4 oz Intake & Output: Intake & Output 11/28/22 11/29/22 11/29/22 19:59 03:59 11:59 Intake Total 480 400 Output Total 30 450 30 Balance 450 -50 -30 Weight 135 lb 9.6 oz 135 lb 6.4 oz Intake: Oral 480 400 Output: Drainage 30 Right Foot EMELY Drain 30 Drainage 30 Right Foot EMELY Drain 30 Void Amount 450 Other: Meal Lunch Dinner Percent of Meal Consumed 100% 100% Feeding Ability Independent Independent Urine Appearance Clear Clear Urine Color Yellow Yellow Stool Size Moderate Stool Color Brown Stool Consistency Normal for Patient Soft # Voids 1 1 # Bowel Movements 2 General appearance: no acute distress and thin Exam: generalized bruising of arms and torso Psychiatric Psychiatric exam: Present normal affect and normal mood Additional comments: positive mental orientation towards TMA Skin Skin exam: Present normal color Additional comments: right foot: incision, aligned, sutures intact. no signs of infection.EMELY drain productive: approx 30ml total in past 24 hours. Now minimal production OBJ DATA Labs 11/29/22 04:58 11/29/22 04:58 Labs: Abnormal Lab Results 11/29/22 11/29/22 11/28/22 04:58 04:58 05:10 WBC RBC 3.11 L Hgb 8.5 L Hct 28.3 L MCHC 30.0 L RDW 14.7 H [place] % (Auto) Lymph # (Auto) 1.17 L POC PT Potassium 5.3 H Carbon Dioxide POC Total CO2 Anion Gap 7.0 L BUN 36 H Creatinine 3.0 H 2.4 H POC Creatinine Glucose 239 H 50 L POC Glucose Hemoglobin A1c POC WB Ioniz Calcium Phosphorus 5.0 H 4.8 H Total Protein 5.0 L 5.3 L Albumin 2.8 L 2.8 L 11/28/22 11/27/22 11/27/22 05:10 16:20 16:16 WBC 3.6 L RBC Hgb 10.4 L Hct 33.8 L MCHC 30.8 L RDW [place] % (Auto) 12.3 H Lymph # (Auto) 1.01 L POC PT Potassium Carbon Dioxide POC Total CO2 31.0 H Anion Gap BUN Creatinine POC Creatinine 2.2 H Glucose POC Glucose 145 H Hemoglobin A1c 6.6 H POC WB Ioniz Calcium 1.06 L Phosphorus Total Protein Albumin 11/27/22 11/27/22 11/27/22 16:16 16:16 16:14 WBC RBC Hgb Hct MCHC RDW [place] % (Auto) Lymph # (Auto) 1.17 L POC PT 11.8 L Potassium Carbon Dioxide 31 H POC Total CO2 Anion Gap 6.0 L BUN Creatinine 1.8 H POC Creatinine Glucose 145 H POC Glucose Hemoglobin A1c POC WB Ioniz Calcium Phosphorus Total Protein Albumin Meds: Medications Acetaminophen (Acetaminophen 325 Mg Tablet) 650 mg PO Q6HP PRN; Protocol PRN Reason: Per Pain Protocol/Fever > 101 Hydrocodone Bitart/Acetaminophen (Hydrocodone/Apap 5/325mg Tablet) 1 tab PO Q4HP PRN PRN Reason: PAIN LEVEL 3-6 Last Admin: 11/28/22 20:09 Dose: 1 tab Albuterol/Ipratropium (Ipratropium/Albuterol 3 Ml Ampul.Neb) 3 ml NEB Q4HP PRN PRN Reason: Shortness Of Breath Cefepime HCl (Cefepime 1 Gm Vial) 1 gm IV Q24H [facility]; Protocol Last Admin: 11/29/22 08:22 Dose: 1 gm Dextrose (Dextrose 50% 50 Ml Syringe) 0 ml IV UD PRN PRN Reason: Per Sliding Scale Diagnostic Test (Pha) (Accu-Chek 1 Each Strip) 1 each FS ACHS [facility] Last Admin: 11/29/22 07:14 Dose: 1 each Docusate Sodium (Docusate Sodium 100 Mg Capsule) 100 mg PO BID [facility] Last Admin: 11/29/22 08:19 Dose: Not Given Glucose (Dextrose 31 Gm Oral.Susp) 15 gm PO PRN PRN PRN Reason: Hypoglycemia Heparin Sodium (Porcine) (Heparin 5,000 Unit/Ml Vial) 5,000 unit SQ Q12 [facility] Last Admin: 11/29/22 08:21 Dose: 5,000 unit Potassium Chloride 40 meq/ (Dextrose) 520 mls @ 130 mls/hr IV UD PRN PRN Reason: Potassium < 3 Magnesium Sulfate (Magnesium Sulfate) 2 gm in 50 mls @ 50 mls/hr IV UD PRN PRN Reason: Magnesium </= 1.6 Insulin Glargine (Insulin Glargine, Human 1 Unit/0.01 Ml) 8 unit SQ DAILY [facility] Last Admin: 11/29/22 08:22 Dose: 1 units Insulin Human Lispro (Insulin Lispro 1 Unit/0.01 Ml Unit) 0 unit SQ [facility]; Protocol Last Admin: 11/29/22 07:22 Dose: 6 units Morphine Sulfate (Morphine 4 Mg/Ml Vial) 0 mg IV Q3HP PRN PRN Reason: Pain Ondansetron HCl (Ondansetron 4 Mg/2 Ml Vial) 4 mg IV Q4HP PRN PRN Reason: Nausea And Vomiting Polyethylene Glycol (Polyethylene Glycol 3350 17 Gm Packet) 17 gm PO DAILYP PRN PRN Reason: Constipation Potassium Chloride (Potassium Chloride 20 Meq Tablet) 40 meq PO UD PRN PRN Reason: Potssium is 3-3.5 Potassium Chloride (Potassium Chloride 20 Meq Tablet) 40 meq PO UD PRN PRN Reason: Potassium < 3 Senna (Sennosides 1 Tablet) 2 tab PO DAILYP PRN PRN Reason: Constipation Sodium Chloride (0.9 % Sodium Chloride 10 Ml Syringe) 10 ml IV Q8 [facility] Last Admin: 11/29/22 07:11 Dose: Not Given Vancomycin HCl (Vancomycin Per Pharmacy) 1 order IV UD [facility]; Protocol A/P Narrative A/P Narrative: POD#1 right TMA right foot. Doing well: pain controlled/pop block subsided, no signs of infection. plantar skin flap healthy in appearance with immediate refill. Drain pulled, incisions cleansed with Vashe and DSD applied will follow wound/bone cultures- continue antibiotics NWB - consult PT/OT appreciated Hemodialysis as per medicine social work for rehab placement Plan of Treatment: To OR today for TMA right foot.pt is scheduled for 6/2 TMA right foot and given ESRD and prior non-healing wounds of prior digital amputations and MRI evidence of distal forefoot osteomyelitis, is at high risk for BKA. I am very appreciative that we could have the patient admitted and be close to her HD. She lives by herself without help from family or friends will need rehab facility that will allow her to be nwb and have access to her T/TH/Sat. hemodyalisis, She will also require 6 weeks of antibiotics. Pt is scheduled for right TMA this morning (). Risks alternatives, course and possibility of future amputation(s) were discussed with pt. Time Spent With Patient Time: Total time spent is greater than 50% in coordination of care (as documented) at patient's floor/unit and/or counseling patient:
[2022-11-30] MEDS: 0.9 % SODIUM CHLORIDE 10 ML SYRINGE IV SCH ×3 (04:32→20:44)
[2022-11-30 06:11] LABS: Basophils # (Auto) 0.05 K/mcL (0.00-0.30); Eosinophils # (Auto) 0.17 K/mcL (0.00-0.70); Eosinophils % (Auto) 3.6 % (0.0-7.0); Hematocrit 28.8 % (34.1-44.9); Hemoglobin 8.6 g/dL (11.2-15.7); Lymphocytes # (Auto) 1.32 K/mcL (1.50-4.80); Lymphocytes % (Auto) 27.6 % (15.5-49.0); Mean Cell Volume 93.2 fL (80.0-100.0); Mean Corpuscular HGB Conc 29.9 g/dL (31.0-36.0); Mean Platelet Volume 10.7 fL (8.8-12.5); Monocytes # (Auto) 0.38 K/mcL (0.10-0.90); Monocytes % (Auto) 7.9 % (1.0-12.0); Neutrophils % (Auto) 59.7 % (38.0-78.0); Platelet Count 157 K/mcL (140-440); RBC 3.09 M/mcL (3.59-5.38); Red Cell Distribution Width 14.8 % (11.5-14.5); WBC 4.8 K/mcL (4.5-11.0)
[2022-11-30 06:47] LABS: Blood Urea Nitrogen 54 mg/dL (8-23); Calcium 8.6 mg/dL (8.6-10.4); Carbon Dioxide 24 mmol/L (22-30); Chloride 103 mmol/L (96-108); Glomerular Filtration Rate 12; Glucose 169 mg/dL (70-105)
[2022-11-30] MEDS: INSULIN LISPRO 1 UNIT/0.01 ML UNIT SQ SCH ×4 (07:41→20:55)
[2022-11-30] MEDS: HEPARIN 5,000 UNIT/ML VIAL SQ SCH ×2 (08:07→20:43)
[2022-11-30] MEDS: INSULIN GLARGINE, HUMAN 1 UNIT/0.01 ML SQ SCH (08:07)
[2022-11-30] MEDS: DOCUSATE SODIUM 100 MG CAPSULE PO SCH ×2 (08:07→20:43)
--- NOTE | 2022-11-30 08:41 | Internal Med Progress Note ---
SUBJECTIVE Subjective Patient information: Note initiated : 11/30/22 at 8:38 am Service Date, if different from initiated Date: [] Patient: Ana Kovacs a 72 y/o F admitted on 11/27/22 for Foot pain- Osteomyelitis,Gangrene. Chief Complaint: [] Principal diagnosis: osteomyelitis right forefoot Interval history: History of present illness: Ms. Kovacs is a 72 year old F Presents to the ED sent in by Dr. Dunlap for gangrenous infection of the right foot with osteomyelitis. Per the podiatry notes from November 25 patient history was regarding right foot osteomyelitis with strong odor and sloughing of tissue when bandage was removed. Patient had MRI which showed osteomyelitis of the forefoot. The plan was to get a transmetatarsal amputation on Thursday and hopefully to a rehab facility postsurgically. Patient states she developed wound back in April which is continued to progress. She is been following with wound care. She saw Dr. Dunlap about a month ago. And then again last Thursday at which time he decided it needed amputation. She is also been on antibiotics outpatient last 1 was Augmentin but the infection seems to be worsened. She had an MRI done yesterday at [facility] which showed osteomyelitis. We are awaiting the report. She also is a dialysis patient and gets dialysis Thursday with Dr. Houston. Patient appeared to be stable in the ED. Nephrology was consulted for dialysis While in the hospital. Patient be admitted for osteomyelitis and gangrene of the foot failed outpatient therapy and also needing surgery. Patient will very likely be here for greater than 2 midnights. 11/28 Patient status post right transmetatarsal amputation. Patient tolerated the procedure well. No acute events or overnight complaints. Patient got dialysis yesterday. Dialysis not available on Thursday and nephrology aware, they are okay for her to wait until Thursday for dialysis. 11/29 Patient seems a feeling well. No overnight event or new complaints. Awaiting surgical cultures. Postop anemia, Monitor. Mildly elevated potassium. Kayexalate given by nephrology. Next dialysis on Thursday. De-escalate antibiotics once cultures returned 11/30 Patient says she is feeling well. Hemoglobin similar to yesterday, Low but stable. She get dialysis tomorrow. Review of Systems: Pertinent positives as above. Denies headache/fever/chills/nausea/vomiting/chest or abdominal pain/cough/dyspnea/diarrhea. PHYSICAL EXAM General: Alert, Awake, No acute Distress Eyes/N/T: EOMI, no scleral icterus, Head/Neck: neck supple, full ROM, CV: RRR, No murmurs, Pulm: Clear b/l, no wheezing/rhonchi/rales, no respiratory distress Abd: soft, nontender, +BS x4 Ext: no clubbing/cyanosis/edema, nontender. Right foot in surgical dressings Neuro: Alert, no focal deficits, moves all extremities, , sensations intact b/l upper/lower Psychiatric: Skin: warm/dry, normal color Constitutional Vitals: Vital Signs Temp Pulse Resp BP Pulse Ox O2 Del Method O2 Flow Rate 97.4 F 74 16 118/42 97 Room Air 0 11/30/22 07:57 11/30/22 07:57 11/30/22 07:57 11/30/22 07:57 11/30/22 07:57 11/30/22 07:57 11/30/22 07:57 Period Temp Pulse Resp BP Sys/Lloyd Pulse Ox O2 Del Method O2 Flow Rate Last 24 Hr 97.3 F-98.6 F 74-86 12-18 106-135/42-63 97-99 Room Air-Room Air 0 Intake and Output 11/29/22 11/30/22 11/30/22 19:59 03:59 11:59 Intake Total 480 300 Output Total 150 Balance 480 150 Weight 65.487 kg Intake & Output: Intake & Output 11/29/22 11/30/22 11/30/22 19:59 03:59 11:59 Intake Total 480 300 Output Total 150 Balance 480 150 Weight 65.487 kg Intake: Oral 480 300 Output: Void Amount 150 Other: Meal Lunch Percent of Meal Consumed 100% Feeding Ability Independent OBJ DATA Labs 11/30/22 05:00 11/30/22 05:00 Labs: Abnormal Lab Results 11/30/22 11/30/22 11/29/22 05:00 05:00 04:58 WBC RBC 3.09 L Hgb 8.6 L Hct 28.8 L MCHC 29.9 L RDW 14.8 H [place] % (Auto) Lymph # (Auto) 1.32 L POC PT Potassium 5.3 H Carbon Dioxide POC Total CO2 Anion Gap BUN 54 H 36 H Creatinine 3.5 H 3.0 H POC Creatinine Glucose 169 H 239 H POC Glucose Hemoglobin A1c POC WB Ioniz Calcium Phosphorus 5.0 H Total Protein 5.0 L Albumin 2.8 L 11/29/22 11/28/22 11/28/22 04:58 05:10 05:10 WBC 3.6 L RBC 3.11 L Hgb 8.5 L 10.4 L Hct 28.3 L 33.8 L MCHC 30.0 L 30.8 L RDW 14.7 H [place] % (Auto) 12.3 H Lymph # (Auto) 1.17 L 1.01 L POC PT Potassium Carbon Dioxide POC Total CO2 Anion Gap 7.0 L BUN Creatinine 2.4 H POC Creatinine Glucose 50 L POC Glucose Hemoglobin A1c POC WB Ioniz Calcium Phosphorus 4.8 H Total Protein 5.3 L Albumin 2.8 L 11/27/22 11/27/22 11/27/22 16:20 16:16 16:16 WBC RBC Hgb Hct MCHC RDW [place] % (Auto) Lymph # (Auto) POC PT Potassium Carbon Dioxide 31 H POC Total CO2 31.0 H Anion Gap 6.0 L BUN Creatinine 1.8 H POC Creatinine 2.2 H Glucose 145 H POC Glucose 145 H Hemoglobin A1c 6.6 H POC WB Ioniz Calcium 1.06 L Phosphorus Total Protein Albumin 11/27/22 11/27/22 16:16 16:14 WBC RBC Hgb Hct MCHC RDW [place] % (Auto) Lymph # (Auto) 1.17 L POC PT 11.8 L Potassium Carbon Dioxide POC Total CO2 Anion Gap BUN Creatinine POC Creatinine Glucose POC Glucose Hemoglobin A1c POC WB Ioniz Calcium Phosphorus Total Protein Albumin Meds: Medications Acetaminophen (Acetaminophen 325 Mg Tablet) 650 mg PO Q6HP PRN; Protocol PRN Reason: Per Pain Protocol/Fever > 101 Hydrocodone Bitart/Acetaminophen (Hydrocodone/Apap 5/325mg Tablet) 1 tab PO Q4HP PRN PRN Reason: PAIN LEVEL 3-6 Last Admin: 11/28/22 20:09 Dose: 1 tab Albuterol/Ipratropium (Ipratropium/Albuterol 3 Ml Ampul.Neb) 3 ml NEB Q4HP PRN PRN Reason: Shortness Of Breath Cefepime HCl (Cefepime 1 Gm Vial) 1 gm IV Q24H [facility]; Protocol Last Admin: 11/29/22 08:22 Dose: 1 gm Dextrose (Dextrose 50% 50 Ml Syringe) 0 ml IV UD PRN PRN Reason: Per Sliding Scale Diagnostic Test (Pha) (Accu-Chek 1 Each Strip) 1 each FS [facility] Last Admin: 11/30/22 07:17 Dose: 1 each Docusate Sodium (Docusate Sodium 100 Mg Capsule) 100 mg PO BID [facility] Last Admin: 11/30/22 08:07 Dose: Not Given Glucose (Dextrose 31 Gm Oral.Susp) 15 gm PO PRN PRN PRN Reason: Hypoglycemia Heparin Sodium (Porcine) (Heparin 5,000 Unit/Ml Vial) 5,000 unit SQ Q12 [facility] Last Admin: 11/30/22 08:07 Dose: 5,000 unit Potassium Chloride 40 meq/ (Dextrose) 520 mls @ 130 mls/hr IV UD PRN PRN Reason: Potassium < 3 Magnesium Sulfate (Magnesium Sulfate) 2 gm in 50 mls @ 50 mls/hr IV UD PRN PRN Reason: Magnesium </= 1.6 Insulin Glargine (Insulin Glargine, Human 1 Unit/0.01 Ml) 8 unit SQ DAILY [facility] Last Admin: 11/30/22 08:07 Dose: 8 units Insulin Human Lispro (Insulin Lispro 1 Unit/0.01 Ml Unit) 0 unit SQ [facility]; Protocol Last Admin: 11/30/22 07:41 Dose: 4 units Morphine Sulfate (Morphine 4 Mg/Ml Vial) 0 mg IV Q3HP PRN PRN Reason: Pain Ondansetron HCl (Ondansetron 4 Mg/2 Ml Vial) 4 mg IV Q4HP PRN PRN Reason: Nausea And Vomiting Polyethylene Glycol (Polyethylene Glycol 3350 17 Gm Packet) 17 gm PO DAILYP PRN PRN Reason: Constipation Potassium Chloride (Potassium Chloride 20 Meq Tablet) 40 meq PO UD PRN PRN Reason: Potssium is 3-3.5 Potassium Chloride (Potassium Chloride 20 Meq Tablet) 40 meq PO UD PRN PRN Reason: Potassium < 3 Senna (Sennosides 1 Tablet) 2 tab PO DAILYP PRN PRN Reason: Constipation Sodium Chloride (0.9 % Sodium Chloride 10 Ml Syringe) 10 ml IV Q8 [facility] Last Admin: 11/30/22 04:32 Dose: 10 ml Vancomycin HCl (Vancomycin Per Pharmacy) 1 order IV UD [facility]; Protocol A/P Narrative A/P Narrative: A: *Right foot diabetic infection w/osteomyelitis of metatarsals & gangrenous toes: Failed outpatient antibiotics -recent MRI at [facility] showing osteo of forefoot -s/p transtarsal amputation *ESRD: *Hyperkalemia, mild: monitor *Anemia, acute on chronic: 2/2 procedure, monitor *DM2 w/nephropathy: -A1C 6.6 P: -currently on cefepime for h/o pseudomonas, vanco pending surgical bone cx's -Dr. Dunlap following -ID consult -wound care consulted -obtain mri records -basal (reduced for low BG) and SSI -Nephrology for hemodialysis, next on thursday, s/p kayexalate -PT/OT -CM for placement -ppx: Heparin DNR Plan of Treatment: To OR today for TMA right foot.pt is scheduled for 11/28 TMA right foot and given ESRD and prior non-healing wounds of prior digital amputations and MRI evidence of distal forefoot osteomyelitis, is at high risk for BKA. I am very appreciative that we could have the patient admitted and be close to her HD. She lives by herself without help from family or friends will need rehab facility that will allow her to be nwb and have access to her T/TH/Sat. hemodyalisis, She will also require 6 weeks of antibiotics. Pt is scheduled for right TMA this morning (). Risks alternatives, course and possibility of future amputation(s) were discussed with pt. Time Spent With Patient Time: Total time spent is greater than 50% in coordination of care (as documented) at patient's floor/unit and/or counseling patient: Subsequent: Total time with patient: 35 - 49 minutes QUALITY Stroke Symptom Onset Unknown: No VTE Deep Vein Thrombosis/Pulmonary Embolism Present on Admission: No
[2022-11-30] MEDS: CEFEPIME 1 GM VIAL IV SCH (09:13)
--- NOTE | 2022-11-30 10:14 | Infectious Disease Consult ---
HPI Date of Consult Consult Date: 11/30/22 Primary Care Provider: Solitario Pan Consult Narrative History of present illness: 72-year-old woman with history of ESRD, diabetes and chronic osteomyelitis of the right foot. Patient was seen by podiatry on 11/25 and was noted to have strong odor and sloughing of tissue when bandage was removed. Patient had MRI which showed osteomyelitis of the forefoot. patient been was admitted for TMA. Patient had TMA done on 11/28. ID is consulted for antibiotic management. Cultures and pathology still pending.. cc:: CC: Ryan Disla [facility] All Active Problems (Updated 11/28/22 @ 06:47 by Sanket Dunlap DPM) Diabetic foot ulcer with osteomyelitis (Acute) End-stage renal disease on hemodialysis (Chronic) Indigestion (Chronic) Poor sleep (Chronic) Lesion of bladder (Chronic) Amputation of little toe (Chronic ~1998) Postmenopausal (Chronic) Low blood pressure (Chronic) Fatigue (Chronic) Long-term insulin use (Chronic) Proteinuria (Chronic) Hyperlipidemia (Chronic) Gastroparesis diabeticorum (Chronic) Iron deficiency anemia (Chronic) Vitamin D deficiency (Chronic) Secondary hyperparathyroidism of renal origin (Chronic) Persistent proteinuria (Chronic) Uncontrolled type 2 diabetes mellitus with insulin therapy (Chronic) Hyperuricemia (Chronic) Body mass index (bmi) 25.0-25.9, adult (Chronic) Syncope due to orthostatic hypotension (Acute) Scalp hematoma (Acute) Yeast infection (Chronic) Diverticulosis (Chronic) Vulvovaginal candidiasis (Chronic) Pyelonephritis, acute (Chronic) Diabetic retinopathy (Chronic) Abnormal findings on diagnostic imaging of lung (Chronic) Coronary artery disease (Chronic) Hemorrhoids (Chronic) Diabetic peripheral neuropathy (Chronic) Murmur, cardiac (Chronic) Osteopenia (Chronic) At risk for falls (Chronic) Renal osteodystrophy (Chronic) Body mass index 26.0-26.9, adult (Chronic) Shoulder pain, left (Chronic) Multinodular goiter (Chronic) Recurrent UTI (Chronic) Anemia of chronic disease (Chronic) GERD (gastroesophageal reflux disease) (Chronic) Wellness examination (Chronic) Diverticulosis of colon without hemorrhage (Chronic) History of hypoglycemia (Chronic) Medicare annual wellness visit, subsequent (Acute) Osteoporosis (Acute) Leg ulcer, left (Acute) COVID-19 (Acute) Hypoglycemia associated with diabetes (Acute) Syncope and collapse (Acute) Primary hypertension (Chronic) 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 At risk for falls Body mass index (bmi) 25.0-25.9, adult Body mass index 26.0-26.9, adult Coronary artery disease Diabetic peripheral neuropathy Diabetic retinopathy Diverticulosis Diverticulosis of colon without hemorrhage Fatigue Gastroparesis diabeticorum GERD (gastroesophageal reflux disease) Hemorrhoids History of hypoglycemia Hyperlipidemia Hyperuricemia Indigestion Iron deficiency anemia Lesion of bladder 2013 Long-term insulin use Low blood pressure Multinodular goiter Murmur, cardiac Osteopenia Persistent proteinuria Poor sleep Postmenopausal Proteinuria Pyelonephritis, acute Recurrent UTI Renal osteodystrophy Secondary hyperparathyroidism of renal origin Shoulder pain, left Uncontrolled type 2 diabetes mellitus with insulin therapy Vitamin D deficiency Vulvovaginal candidiasis Wellness examination Yeast infection Surgical History History of amputation of toe (~1998) Little toe History of appendectomy (~1965) 1966 History of colonoscopy (08/26/17) Dr Celeste-Hemorrhoids, diverticulosis, repeat 10 years History of surgical procedure 2017-Vascular Stents, 2013-Liasion in bladder S/P ear surgery ? gland in ear - 1967 Family History Father , Age 72 Alcoholism Sister Hypertension Diabetes mellitus History of intravascular stent placement Mother , Age 38 Cerebral hemorrhage Social History marital status: occupational status: retired leisure activities: other smoking status: Former smoker alcohol intake frequency: holiday/special occasion only substance use type: does not use MEDS/ALLERGIES Home Medications and Allergies Home Medications Medication Instructions Recorded Confirmed Type aspirin 81 mg tablet,delayed 81 mg PO QDAY #60 tabs 08/15/15 11/27/22 Rx release (Adult Low Dose Aspirin) insulin aspart U-100 100 unit/mL See Rx Instructions .Route 12/06/19 11/27/22 Rx subcutaneous solution (Novolog .COMPLEX #10 mL U-100 Insulin aspart) denosumab 60 mg/mL subcutaneous 60 mg subcut [id number] #1 mL 03/28/20 11/27/22 Rx syringe (Prolia) glucagon 1 mg/0.2 mL subcutaneous 1 mg (0.2 mL) subcut ONCE #0.2 mL 08/10/20 11/27/22 Rx auto-injector cholecalciferol (vitamin D3) 100 100 mcg PO QDAY #90 tabs 09/05/20 11/27/22 Rx mcg (4,000 unit) tablet insulin glargine 100 unit/mL (3 See Rx Instructions .Route .COMPLEX 08/22/21 11/27/22 History mL) subcutaneous pen (Lantus Solostar U-100 Insulin) Allergies Allergy/AdvReac Type Severity Reaction Status Date / Time Iodinated Contrast Media Allergy Severe Anaphylaxis Verified 11/26/22 12:06 [Iodinated Contrast Media - IV Dye] Physical Examination Vital Signs Vital signs: Temp Pulse Resp BP Pulse Ox O2 Del Method O2 Flow Rate 97.4 F 74 16 118/42 97 Room Air 0 11/30/22 07:57 11/30/22 07:57 11/30/22 07:57 11/30/22 07:57 11/30/22 07:57 11/30/22 07:57 11/30/22 07:57 Constitutional General appearance: no acute distress Musculoskeletal Musculoskeletal: other (Dressing left intact) Results Laboratory Findings 11/30/22 05:00 11/30/22 05:00 Abnormal lab findings: Abnormal Labs 11/27/22 11/27/22 11/27/22 16:14 16:16 16:16 WBC RBC Hgb Hct MCHC RDW [place] % (Auto) Lymph # (Auto) 1.17 L POC PT 11.8 L Potassium Carbon Dioxide 31 H POC Total CO2 Anion Gap 6.0 L BUN Creatinine 1.8 H POC Creatinine Glucose 145 H POC Glucose Hemoglobin A1c POC WB Ioniz Calcium Phosphorus Total Protein Albumin 06/01/23 06/01/23 06/02/23 16:16 16:20 05:10 WBC 3.6 L RBC Hgb 10.4 L Hct 33.8 L MCHC 30.8 L RDW [place] % (Auto) 12.3 H Lymph # (Auto) 1.01 L POC PT Potassium Carbon Dioxide POC Total CO2 31.0 H Anion Gap BUN Creatinine POC Creatinine 2.2 H Glucose POC Glucose 145 H Hemoglobin A1c 6.6 H POC WB Ioniz Calcium 1.06 L Phosphorus Total Protein Albumin 11/28/22 11/29/22 11/29/22 05:10 04:58 04:58 WBC RBC 3.11 L Hgb 8.5 L Hct 28.3 L MCHC 30.0 L RDW 14.7 H [place] % (Auto) Lymph # (Auto) 1.17 L POC PT Potassium 5.3 H Carbon Dioxide POC Total CO2 Anion Gap 7.0 L BUN 36 H Creatinine 2.4 H 3.0 H POC Creatinine Glucose 50 L 239 H POC Glucose Hemoglobin A1c POC WB Ioniz Calcium Phosphorus 4.8 H 5.0 H Total Protein 5.3 L 5.0 L Albumin 2.8 L 2.8 L 11/30/22 11/30/22 05:00 05:00 WBC RBC 3.09 L Hgb 8.6 L Hct 28.8 L MCHC 29.9 L RDW 14.8 H [place] % (Auto) Lymph # (Auto) 1.32 L POC PT Potassium Carbon Dioxide POC Total CO2 Anion Gap BUN 54 H Creatinine 3.5 H POC Creatinine Glucose 169 H POC Glucose Hemoglobin A1c POC WB Ioniz Calcium Phosphorus Total Protein Albumin Microbiology: Microbiology 11/28/22 10:01 Foot - Right Gram Stain - Preliminary 11/28/22 10:01 Foot - Right Anaerobic Culture - Preliminary 11/28/22 10:01 Foot - Right Gram Stain - Preliminary 11/28/22 10:01 Foot - Right Wound Culture - Preliminary 11/28/22 10:01 Foot - Right Gram Stain - Final 11/28/22 10:01 Foot - Right Tissue Culture - Final 11/28/22 10:01 Foot - Right Anaerobic Culture - Preliminary 11/28/22 15:21 Foot - Right Fungal Smear - Preliminary 11/27/22 23:51 Nose MRSA (PCR) - Final A/P Narrative A/P Narrative: Patient status post TMA for osteomyelitis, necrosis. Cultures are still pending, path still pending. Continue the patient on vancomycin and cefepime pending culture result. Duration of therapy is dependent on pathology. ID will follow Time Spent With Patient Time: Total time spent is greater than 50% in coordination of care (as documented) at patient's floor/unit and/or counseling patient:
--- NOTE | 2022-11-30 13:44 | Nephrology Progress Note ---
SUBJECTIVE Subjective Patient information: Note initiated : 11/30/22 at 1:42 pm Service Date, if different from initiated Date: [] Patient: Ana Kovacs 72 y/o F admitted on 11/27/22 for Foot pain- Osteomyelitis,Gangrene. Chief Complaint: [Infected foot] Principal diagnosis: osteomyelitis right forefoot Interval history: ESRD qTTS HD admitted for left foot transmet amputation and no HD since of last week. Earliest Treatment will be Thursday12/01/2022. Orders written Failed outpatient therapy for management of right foot diabetic ulceration. 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 Admitted 11/26 and underwent right transmetatarsal surgery Thursday11/27/2022. Pre-operative Xray show prior toe amputation of distal phalanx and MARKED Calcification of arteries c/w severe vascular disease and low likelhood of healing with conservative Tx. Stays by herself in [place] so placement is needed post op to maintain TTS HD and any abx indicated though cultures inrra-op are negative so far. Vital Signs Temp Pulse Pulse Resp BP BP Pulse Ox 11/30/22 11:51 36.5 C 73 73 16 127/51 100 11/30/22 08:00 16 97 11/30/22 07:57 36.3 C 74 16 118/42 97 11/30/22 04:00 37.0 C 75 16 135/63 99 11/30/22 00:00 36.5 C 76 16 120/48 97 11/29/22 20:00 36.9 C 75 18 123/53 98 11/29/22 16:00 36.9 C 86 12 106/45 99 O2 Del Method O2 Flow Rate 11/30/22 11:51 Room Air 0 11/30/22 08:00 Room Air 0 11/30/22 07:57 Room Air 0 11/30/22 04:00 Room Air 11/30/22 00:00 Room Air 11/29/22 20:00 Room Air 11/29/22 16:00 Room Air Intake and Output 11/30/22 11/30/22 11/30/22 03:59 11:59 19:59 Intake Total 300 Output Total 150 Balance 150 Intake: Oral 300 Output: Void Amount 150 Other: Urine Appearance Mucous Threads Urine Color Yellow Urine Odor Normal Weight 65.487 kg Medications Acetaminophen (Acetaminophen 325 Mg Tablet) 650 mg PO Q6HP PRN; Protocol PRN Reason: Per Pain Protocol/Fever > 101 Hydrocodone Bitart/Acetaminophen (Hydrocodone/Apap 5/325mg Tablet) 1 tab PO Q4HP PRN PRN Reason: PAIN LEVEL 3-6 Last Admin: 11/28/22 20:09 Dose: 1 tab Albuterol/Ipratropium (Ipratropium/Albuterol 3 Ml Ampul.Neb) 3 ml NEB Q4HP PRN PRN Reason: Shortness Of Breath Cefepime HCl (Cefepime 1 Gm Vial) 1 gm IV Q24H [facility]; Protocol Last Admin: 11/30/22 09:13 Dose: 1 gm Dextrose (Dextrose 50% 50 Ml Syringe) 0 ml IV UD PRN PRN Reason: Per Sliding Scale Diagnostic Test (Pha) (Accu-Chek 1 Each Strip) 1 each FS ACHS [facility] Last Admin: 11/30/22 11:27 Dose: 1 each Docusate Sodium (Docusate Sodium 100 Mg Capsule) 100 mg PO BID [facility] Last Admin: 11/30/22 08:07 Dose: Not Given Glucose (Dextrose 31 Gm Oral.Susp) 15 gm PO PRN PRN PRN Reason: Hypoglycemia Heparin Sodium (Porcine) (Heparin 5,000 Unit/Ml Vial) 5,000 unit SQ Q12 [facility] Last Admin: 11/30/22 08:07 Dose: 5,000 unit Potassium Chloride 40 meq/ (Dextrose) 520 mls @ 130 mls/hr IV UD PRN PRN Reason: Potassium < 3 Magnesium Sulfate (Magnesium Sulfate) 2 gm in 50 mls @ 50 mls/hr IV UD PRN PRN Reason: Magnesium </= 1.6 Insulin Glargine (Insulin Glargine, Human 1 Unit/0.01 Ml) 8 unit SQ DAILY [facility] Last Admin: 11/30/22 08:07 Dose: 8 units Insulin Human Lispro (Insulin Lispro 1 Unit/0.01 Ml Unit) 0 unit SQ ACHS [facility]; Protocol Last Admin: 11/30/22 11:27 Dose: 2 units Morphine Sulfate (Morphine 4 Mg/Ml Vial) 0 mg IV Q3HP PRN PRN Reason: Pain Ondansetron HCl (Ondansetron 4 Mg/2 Ml Vial) 4 mg IV Q4HP PRN PRN Reason: Nausea And Vomiting Polyethylene Glycol (Polyethylene Glycol 3350 17 Gm Packet) 17 gm PO DAILYP PRN PRN Reason: Constipation Potassium Chloride (Potassium Chloride 20 Meq Tablet) 40 meq PO UD PRN PRN Reason: Potssium is 3-3.5 Potassium Chloride (Potassium Chloride 20 Meq Tablet) 40 meq PO UD PRN PRN Reason: Potassium < 3 Senna (Sennosides 1 Tablet) 2 tab PO DAILYP PRN PRN Reason: Constipation Sodium Chloride (0.9 % Sodium Chloride 10 Ml Syringe) 10 ml IV Q8 KIRSTIN Last Admin: 11/30/22 04:32 Dose: 10 ml Vancomycin HCl (Vancomycin Per Pharmacy) 1 order IV UD KIRSTIN; Protocol Pertinent ROS: Good spirits Up on BS commode Non-toxic Additional PMFSH (Level 3 Only): See my HPI O/W nothing new Constitutional Vitals: Vital Signs Temp Pulse Resp BP Pulse Ox O2 Del Method O2 Flow Rate 36.5 C 73 16 127/51 100 Room Air 0 11/30/22 11:51 11/30/22 11:51 11/30/22 11:51 11/30/22 11:51 11/30/22 11:51 11/30/22 11:51 11/30/22 11:51 Period Temp Pulse Resp BP Sys/Lloyd Pulse Ox O2 Del Method O2 Flow Rate Last 24 Hr 36.3 C-37.0 C 73-86 12-18 106-135/42-63 97-100 Room Air-Room Air 0-0 Intake and Output 11/30/22 11/30/22 11/30/22 03:59 11:59 19:59 Intake Total 300 Output Total 150 Balance 150 Weight 65.487 kg Intake & Output: Intake & Output 11/30/22 11/30/22 11/30/22 03:59 11:59 19:59 Intake Total 300 Output Total 150 Balance 150 Weight 65.487 kg Intake: Oral 300 Output: Void Amount 150 Other: Urine Appearance Mucous Threads Urine Color Yellow Urine Odor Normal General appearance: average body habitus and no acute distress Head Head exam: Present normal inspection Eye Eye exam: Present EOMI and PERRL ENT ENT exam: Present mucous membranes moist Neck Neck exam: Present normal inspection; Absent meningismus Respiratory Respiratory exam: Present normal respiratory exam and CTAB Cardiovascular Cardiovascular exam: Present normal rate and rhythm, +S1 and +S2; Absent rubs or +S3 GI/Abdominal GI/Abdominal exam: Present normal bowel sounds Neurological Exam Neurological exam: Present abnormal gait (walker and nwb right) and CN II-XII intact Psychiatric Psychiatric exam: Present anxious Skin Skin exam: Present dry A/P Assessment and plan (1) End-stage renal disease on hemodialysis: Assessment and plan: HD qTTS at [facility] HD Plan: Miss 11/29/2022 due to staffing issues Treatment 12/01/2022 as acute inpatient, then TTS Status: Chronic (2) Secondary hyperparathyroidism of renal origin: Plan: Check Ca, PO4 and PTH Status: Chronic (3) Uncontrolled type 2 diabetes mellitus with insulin therapy: Assessment and plan: Short acting insulin Hospital medicine and PCP Plan: per Hospital Med Status: Chronic (4) Gangrene of toe of right foot: Plan: S/P right transmetatarsal amputation Cultures negative so I would dowgrrade ABx Status: Chronic (5) Anemia in end-stage renal disease: Plan: Aranesp q Thursday Status: Chronic Narrative A/P Narrative: 1 ESRD 2. Anemia of ESRD 3. Secondary Hyperparathyroidism in ESRD Plan of Treatment: * HD tomorrow 12/01/2022 and again Thursday12/02/2022 eithere as inpatient or upon discharge in outpatient unit on the way to facility for rehab. * Aranesp SQ Thursday * Check CA, PO4 and PTH tomorrow. Time Spent With Patient Time: Total time spent is greater than 50% in coordination of care (as documented) at patient's floor/unit and/or counseling patient:
--- NOTE | 2022-11-30 13:48 | Discharge Summary ---
Discharge Provider Provider IMPORTANT FOLLOW-UP INFORMATION FOR PCP: Patient information: Note initiated : 11/30/22 at 1:46 pm Service Date, if different from initiated Date: [] Patient: Ana Kovacs 72 y/o F admitted on 11/27/22 for Foot pain- Osteomyelitis,Gangrene. Chief Complaint: [] Date of admission: 11/27/22 20:40 Discharge date: 12/02/22 Primary care physician: Solitario Pan Consults: 11/27/22 Consult to Physician [CONS] Stat Comment: Consulting Provider: Ryan Disla Reason For Exam: Physician to Consult Consult to Physician [CONS] Stat Comment: Consulting Provider: Anita Tatum Reason For Exam: Physician to Consult 11/27/22 20:41 Consult to Physician [CONS] Routine Comment: Consulting Provider: Sanket Dunlap Reason For Exam: Physician to Consult 11/29/22 10:25 Consult to Physician [CONS] Routine Comment: R forefoot osteomyelitis s/p transmetatarsal amput Consulting Provider: Adilson ROOT Reason For Exam: Physician to Consult COURSE Hospital Course Hospital course: History of present illness: Ms. Kovacs is a 72 year old F Presents to the ED sent in by Dr. Dunlap for gangrenous infection of the right foot with osteomyelitis. Per the podiatry notes from November 25 patient history was regarding right foot osteomyelitis with strong odor and sloughing of tissue when bandage was removed. Patient had MRI which showed osteomyelitis of the forefoot. The plan was to get a transmetatarsal amputation on Thursday and hopefully to a rehab facility postsurgically. Patient states she developed wound back in April which is continued to progress. She is been following with wound care. She saw Dr. Dunlap about a month ago. And then again last Thursday at which time he decided it needed amputation. She is also been on antibiotics outpatient last 1 was Augmentin but the infection seems to be worsened. She had an MRI done yesterday at [facility] which showed osteomyelitis. We are awaiting the report. She also is a dialysis patient and gets dialysis Thursday with Dr. Houston. Patient appeared to be stable in the ED. Nephrology was consulted for dialysis While in the hospital. Patient be admitted for osteomyelitis and gangrene of the foot failed outpatient therapy and also needing surgery. Patient will very likely be here for greater than 2 midnights. 11/28 Patient status post right transmetatarsal amputation. Patient tolerated the procedure well. No acute events or overnight complaints. Patient got dialysis yesterday. Dialysis not available on Thursday and neph rology aware, they are okay for her to wait until Thursday for dialysis. 11/29 Patient seems a feeling well. No overnight event or new complaints. Awaiting surgical cultures. Postop anemia, Monitor. Mildly elevated potassium. Kayexalate given by nephrology. Next dialysis on Thursday. De-escalate antibiotics once cultures returned 11/30 Patient says she is feeling well. Hemoglobin similar to yesterday, Low but stable. She get dialysis tomorrow. 12/01 Patient doing well postop awaiting surgical cultures. No overnight event or new complaints. Anemia present but stable. Undergoing dialysis today. Hopefully discharge tomorrow once cultures are back 12/02 No overnight event events or new complaints. Patient stable ready for discharge. A: *Right foot diabetic infection w/osteomyelitis of metatarsals & gangrenous toes: Failed outpatient antibiotics -recent MRI at [facility] showing osteo of forefoot -s/p transtarsal amputation (11/28) *ESRD: *Hyperkalemia, mild: monitor *Anemia, acute on chronic: / procedure, monitor *DM2 w/nephropathy: -A1C 6.6 P: -Abx per ID >>750mg q48hrs for 2 weeks, f/u in ID clinic -Dr. Dunlap f/u -basal (reduced for low BG) Discharge diagnosis: Right forefoot osteomyelitis necrosis Secondary discharge diagnosis: End-stage renal disease hyperkalemia anemia diabetes with neuropathy nephropathy Time Spent with Patient Time attestation: Total time spent providing and/or coordinating discharge services: Time spent: Greater than 30 minutes EXAM Constitutional Vitals: Temp Pulse Resp BP Pulse Ox O2 Del Method O2 Flow Rate 97.7 F 73 16 127/51 100 Room Air 0 11/30/22 11:51 11/30/22 11:51 11/30/22 11:51 11/30/22 11:51 11/30/22 11:51 11/30/22 11:51 11/30/22 11:51 Discharge Data Data Completed and Pending Labs on day of discharge: Labs from last 24 hours 11/30/22 11/30/22 05:00 05:00 WBC 4.8 RBC 3.09 L Hgb 8.6 L Hct 28.8 L MCV 93.2 MCH 27.8 MCHC 29.9 L RDW 14.8 H Plt Count 157 MPV 10.7 Immature Gran % (Auto) 0.2 Neut % (Auto) 59.7 Lymph % (Auto) 27.6 [place] % (Auto) 7.9 Eos % (Auto) 3.6 Baso % (Auto) 1.0 Lymph # (Auto) 1.32 L [place] # (Auto) 0.38 Eos # (Auto) 0.17 Baso # (Auto) 0.05 Immature Gran # 0.01 Absolute Neutrophils 2.85 Sodium 138 Potassium 4.7 Chloride 103 Carbon Dioxide 24 Anion Gap 11.0 BUN 54 H Creatinine 3.5 H GFR Calculation 12 Glucose 169 H Calcium 8.6 Preliminary micro results at discharge 11/28/22 10:01 Gram Stain - Preliminary Foot - Right Anaerobic Culture - Preliminary 11/28/22 10:01 Anaerobic Culture - Preliminary Foot - Right 11/28/22 15:21 Fungal Smear - Preliminary Foot - Right Discharge Plan Patient/Caregiver Discharge Instructions Activity: increase activity as tolerated Diet: Renal/Consistent Carbs Activity Restrictions/Additional Instructions: Long-acting insulin changed from 22 units daily to 8 units because of low blood glucose, titrate back up as needed. Prescriptions: New levofloxacin 750 mg tablet 750 mg PO Q48H Qty: 7 0RF Continued Novolog U-100 Insulin aspart 100 unit/mL solution See Rx Instructions .ROUTE .COMPLEX Qty: 10 12RF Rx Instructions: sliding scale Prolia 60 mg/mL syringe 60 mg SUB-Q [id number] Qty: 1 0RF aspirin [Adult Low Dose Aspirin] 81 mg tablet,delayed release (DR/EC) 81 mg PO QDAY Qty: 60 3RF cholecalciferol (vitamin D3) 100 mcg (4,000 unit) tablet 100 mcg PO QDAY Qty: 90 4RF glucagon 1 mg/0.2 mL auto-injector 1 mg SUB-Q ONCE Qty: 0.2 0RF Rx Instructions: as a single dose; may repeat once after 15 minutes if no response Changed insulin glargine 100 unit/mL (3 mL) insulin pen See Rx Instructions .ROUTE .COMPLEX Qty: 15 0RF Dose Instruction: INJECT 22 UNITS SUBCUTANEOUSLY ONCE DAILY IN THE MORNING Rx Instructions: INJECT 8 UNITS SUBCUTANEOUSLY ONCE DAILY IN THE MORNING Follow Up Plan Follow up with: Adilson Preciado - ID [Provider Group] Solitario Pan PA-C [Primary Care Provider] - Sanket Dunlap DPM [Physician] - Patient Disposition: Xfer SNF Plan of Treatment: * HD tomorrow 12/01/2022 and again Thursday12/02/2022 eithere as inpatient or upon discharge in outpatient unit on the way to facility for rehab. * Aranesp SQ Thursday * Check CA, PO4 and PTH tomorrow. Prognosis: Fair Rehab Potential: Fair I certify that the patient requires SNF services: Yes Overall status at discharge: patient is progressing back to baseline Discharge Orders: Discharge Order (Routine); Ordered 12/02/22 Ordered By: Ryan Disla [facility] Deep Vein Thrombosis/Pulmonary Embolism Present on Admission: No
[2022-12-01] MEDS: 0.9 % SODIUM CHLORIDE 10 ML SYRINGE IV SCH ×3 (04:26→21:24)
[2022-12-01 07:22] LABS: ALT/SGPT 9 U/L (<40); AST/SGOT 12 U/L (<32); Albumin 2.8 gm/dL (3.2-5.2); Albumin/Globulin Ratio 1.2 (1.0-2.3); Alkaline Phosphatase 75 U/L (39-117); Bilirubin,Direct < 0.2 mg/dL (0-0.3); Bilirubin,Total < 0.2 mg/dL (0.1-1.0); Blood Urea Nitrogen 64 mg/dL (8-23); Calcium 8.5 mg/dL (8.6-10.4); Carbon Dioxide 25 mmol/L (22-30); Chloride 104 mmol/L (96-108); Globulin 2.3 gm/dL (2.2-3.7); Glomerular Filtration Rate 10; Glucose 185 mg/dL (70-105); Lactate Dehydrogenase 146 U/L (135-225); Triglycerides 72 mg/dL (<150); Uric Acid 7.4 mg/dL (2.5-8.0)
--- NOTE | 2022-12-01 07:43 | Internal Med Progress Note ---
SUBJECTIVE Subjective Patient information: Note initiated : 12/01/22 at 7:42 am Service Date, if different from initiated Date: [] Patient: Ana Kovacs a 72 y/o F admitted on 11/27/22 for Foot pain- Osteomyelitis,Gangrene. Chief Complaint: [] Principal diagnosis: osteomyelitis right forefoot Interval history: History of present illness: Ms. Kovacs is a 72 year old F Presents to the ED sent in by Dr. Dunlap for gangrenous infection of the right foot with osteomyelitis. Per the podiatry notes from November 25 patient history was regarding right foot osteomyelitis with strong odor and sloughing of tissue when bandage was removed. Patient had MRI which showed osteomyelitis of the forefoot. The plan was to get a transmetatarsal amputation on Thursday and hopefully to a rehab facility postsurgically. Patient states she developed wound back in April which is continued to progress. She is been following with wound care. She saw Dr. Dunlap about a month ago. And then again last Thursday at which time he decided it needed amputation. She is also been on antibiotics outpatient last 1 was Augmentin but the infection seems to be worsened. She had an MRI done yesterday at [facility] which showed osteomyelitis. We are awaiting the report. She also is a dialysis patient and gets dialysis Thursday with Dr. Houston. Patient appeared to be stable in the ED. Nephrology was consulted for dialysis While in the hospital. Patient be admitted for osteomyelitis and gangrene of the foot failed outpatient therapy and also needing surgery. Patient will very likely be here for greater than 2 midnights. 11/28 Patient status post right transmetatarsal amputation. Patient tolerated the procedure well. No acute events or overnight complaints. Patient got dialysis yesterday. Dialysis not available on Thursday and nephrology aware, they are okay for her to wait until Thursday for dialysis. 11/29 Patient seems a feeling well. No overnight event or new complaints. Awaiting surgical cultures. Postop anemia, Monitor. Mildly elevated potassium. Kayexalate given by nephrology. Next dialysis on Thursday. De-escalate antibiotics once cultures returned 11/30 Patient says she is feeling well. Hemoglobin similar to yesterday, Low but stable. She get dialysis tomorrow. 12/01 Patient doing well postop awaiting surgical cultures. No overnight event or new complaints. Anemia present but stable. Undergoing dialysis today. Hopefully discharge tomorrow once cultures are back Review of Systems: Pertinent positives as above. Denies headache/fever/chills/nausea/vomiting/chest or abdominal pain/cough/dyspnea/diarrhea. PHYSICAL EXAM General: Alert, Awake, No acute Distress Eyes/N/T: EOMI, no scleral icterus, Head/Neck: neck supple, full ROM, CV: RRR, No murmurs, Pulm: Clear b/l, no wheezing/rhonchi/rales, no respiratory distress Abd: soft, nontender, +BS x4 Ext: no clubbing/cyanosis/edema, nontender. Right foot in surgical dressings Neuro: Alert, no focal deficits, moves all extremities, , sensations intact b/l upper/lower Psychiatric: Skin: warm/dry, normal color Constitutional Vitals: Vital Signs Temp Pulse Resp BP Pulse Ox O2 Del Method O2 Flow Rate 98.6 F 68 16 113/51 97 Room Air 0 12/01/22 04:00 12/01/22 04:00 12/01/22 04:00 12/01/22 04:00 12/01/22 04:00 12/01/22 04:00 11/30/22 15:58 Period Temp Pulse Resp BP Sys/Lloyd Pulse Ox O2 Del Method O2 Flow Rate Last 24 Hr 97.4 F-98.6 F 68-75 16-18 112-127/42-54 95-100 Room Air-Room Air 0-0 Intake and Output 11/30/22 12/01/22 12/01/22 19:59 03:59 11:59 Intake Total 860 120 250 Output Total 600 200 Balance 260 -80 250 Weight 62.913 kg Intake & Output: Intake & Output 11/30/22 12/01/22 12/01/22 19:59 03:59 11:59 Intake Total 860 120 250 Output Total 600 200 Balance 260 -80 250 Weight 62.913 kg Intake: Oral 860 120 250 Output: Void Amount 600 200 Other: Meal Dinner Percent of Meal Consumed 100% Feeding Ability Assist with Tray Set Up Urine Appearance Clear Urine Color Bright Yellow Urine Odor Strong Stool Size Large Moderate Stool Color Brown Brown Stool Consistency Soft Loose Formed # Voids 1 # Bowel Movements 2 # of times incontinent of 1 Bowels OBJ DATA Labs 11/30/22 05:00 12/01/22 05:24 Labs: Abnormal Lab Results 12/01/22 12/01/22 11/30/22 05:24 05:24 05:00 RBC Hgb Hct MCHC RDW Lymph # (Auto) Potassium BUN 64 H 54 H Creatinine 4.0 H 3.5 H Glucose 185 H 169 H Calcium 8.5 L Phosphorus 6.0 H* Total Protein 5.1 L Albumin 2.8 L PTH Intact 278.0 H 11/30/22 11/29/22 11/29/22 05:00 04:58 04:58 RBC 3.09 L 3.11 L Hgb 8.6 L 8.5 L Hct 28.8 L 28.3 L MCHC 29.9 L 30.0 L RDW 14.8 H 14.7 H Lymph # (Auto) 1.32 L 1.17 L Potassium 5.3 H BUN 36 H Creatinine 3.0 H Glucose 239 H Calcium Phosphorus 5.0 H Total Protein 5.0 L Albumin 2.8 L PTH Intact Meds: Medications Acetaminophen (Acetaminophen 325 Mg Tablet) 650 mg PO Q6HP PRN; Protocol PRN Reason: Per Pain Protocol/Fever > 101 Hydrocodone Bitart/Acetaminophen (Hydrocodone/Apap 5/325mg Tablet) 1 tab PO Q4HP PRN PRN Reason: PAIN LEVEL 3-6 Last Admin: 11/28/22 20:09 Dose: 1 tab Albuterol/Ipratropium (Ipratropium/Albuterol 3 Ml Ampul.Neb) 3 ml NEB Q4HP PRN PRN Reason: Shortness Of Breath Cefepime HCl (Cefepime 1 Gm Vial) 1 gm IV Q24H KIRSTIN; Protocol Last Admin: 11/30/22 09:13 Dose: 1 gm Dextrose (Dextrose 50% 50 Ml Syringe) 0 ml IV UD PRN PRN Reason: Per Sliding Scale Diagnostic Test (Pha) (Accu-Chek 1 Each Strip) 1 each FS ACHS [facility] Last Admin: 11/30/22 20:43 Dose: 1 each Docusate Sodium (Docusate Sodium 100 Mg Capsule) 100 mg PO BID [facility] Last Admin: 11/30/22 20:43 Dose: Not Given Glucose (Dextrose 31 Gm Oral.Susp) 15 gm PO PRN PRN PRN Reason: Hypoglycemia Heparin Sodium (Porcine) (Heparin 5,000 Unit/Ml Vial) 5,000 unit SQ Q12 [facility] Last Admin: 11/30/22 20:43 Dose: 5,000 unit Potassium Chloride 40 meq/ (Dextrose) 520 mls @ 130 mls/hr IV UD PRN PRN Reason: Potassium < 3 Magnesium Sulfate (Magnesium Sulfate) 2 gm in 50 mls @ 50 mls/hr IV UD PRN PRN Reason: Magnesium </= 1.6 Insulin Glargine (Insulin Glargine, Human 1 Unit/0.01 Ml) 8 unit SQ DAILY [facility] Last Admin: 11/30/22 08:07 Dose: 8 units Insulin Human Lispro (Insulin Lispro 1 Unit/0.01 Ml Unit) 0 unit SQ ACHS [facility]; Protocol Last Admin: 11/30/22 20:55 Dose: 4 units Morphine Sulfate (Morphine 4 Mg/Ml Vial) 0 mg IV Q3HP PRN PRN Reason: Pain Ondansetron HCl (Ondansetron 4 Mg/2 Ml Vial) 4 mg IV Q4HP PRN PRN Reason: Nausea And Vomiting Polyethylene Glycol (Polyethylene Glycol 3350 17 Gm Packet) 17 gm PO DAILYP PRN PRN Reason: Constipation Potassium Chloride (Potassium Chloride 20 Meq Tablet) 40 meq PO UD PRN PRN Reason: Potssium is 3-3.5 Potassium Chloride (Potassium Chloride 20 Meq Tablet) 40 meq PO UD PRN PRN Reason: Potassium < 3 Senna (Sennosides 1 Tablet) 2 tab PO DAILYP PRN PRN Reason: Constipation Sodium Chloride (0.9 % Sodium Chloride 10 Ml Syringe) 10 ml IV Q8 [facility] Last Admin: 12/01/22 04:26 Dose: 10 ml Vancomycin HCl (Vancomycin Per Pharmacy) 1 order IV UD [facility]; Protocol A/P Narrative A/P Narrative: A: *Right foot diabetic infection w/osteomyelitis of metatarsals & gangrenous toes: Failed outpatient antibiotics -recent MRI at [facility] showing osteo of forefoot -s/p transtarsal amputation *ESRD: *Hyperkalemia, mild: monitor. s/p kayexalate *Anemia, acute on chronic: 2/2 procedure, monitor *DM2 w/nephropathy: -A1C 6.6 P: -currently on cefepime for h/o pseudomonas, vanco pending surgical bone cx's -Dr. Dunlap following -ID following, likely d/c on levaquin 750mg q48hrs for 2 weeks, f/u in ID clinic -wound care consulted -basal (reduced for low BG) and SSI -Nephrology for hemodialysis today -PT/OT -CM for placement -ppx: Heparin DNR Plan of Treatment: * HD tomorrow 12/01/2022 and again Thursday12/02/2022 eithere as inpatient or upon discharge in outpatient unit on the way to facility for rehab. * Aranesp SQ Thursday * Check CA, PO4 and PTH tomorrow. Time Spent With Patient Time: Total time spent is greater than 50% in coordination of care (as documented) at patient's floor/unit and/or counseling patient: Subsequent: Total time with patient: 35 - 49 minutes QUALITY Stroke Symptom Onset Unknown: No VTE Deep Vein Thrombosis/Pulmonary Embolism Present on Admission: No
--- NOTE | 2022-12-01 08:17 | Nephrology Progress Note ---
SUBJECTIVE Subjective Patient information: Note initiated : 12/01/22 at 8:16 am Service Date, if different from initiated Date: [] Patient: Ana Kovacs 72 y/o F admitted on 11/27/22 for Foot pain- Osteomyelitis,Gangrene. Chief Complaint: [ESRD] Principal diagnosis: osteomyelitis right forefoot Interval history: Seen prior to HD at 0900 hr Seen at 1240 while still on dialysis for his second visit. Hemodynamically stable We will use calcium based phosphate binder Hemoglobin 8.6 due to blood loss in OR and frequent lab work in the hospital we will give Aranesp subcu tomorrow. Will be going to a facility for rehab and will remain on TTS schedule starting tomorrow either as an outpatient or continued inpatient. Nonetheless she will be dialyzed tomorrow and given Aranesp Pertinent ROS: Feeling better ID note reviewed Additional PMFSH (Level 3 Only): Nothing new Constitutional Vitals: Vital Signs Temp Pulse Resp BP Pulse Ox O2 Del Method O2 Flow Rate 37.0 C 68 16 113/51 97 Room Air 0 12/01/22 04:00 12/01/22 04:00 12/01/22 04:00 12/01/22 04:00 12/01/22 04:00 12/01/22 04:00 11/30/22 15:58 Period Temp Pulse Resp BP Sys/Lloyd Pulse Ox O2 Del Method O2 Flow Rate Last 24 Hr 36.5 C-37.0 C 68-75 16-18 112-127/51-54 95-100 Room Air-Room Air 0-0 Intake and Output 11/30/22 12/01/22 12/01/22 19:59 03:59 11:59 Intake Total 860 120 250 Output Total 600 200 Balance 260 -80 250 Weight 62.913 kg Intake & Output: Intake & Output 11/30/22 12/01/22 12/01/22 19:59 03:59 11:59 Intake Total 860 120 250 Output Total 600 200 Balance 260 -80 250 Weight 62.913 kg Intake: Oral 860 120 250 Output: Void Amount 600 200 Other: Meal Dinner Percent of Meal Consumed 100% Feeding Ability Assist with Tray Set Up Urine Appearance Clear Urine Color Bright Yellow Urine Odor Strong Stool Size Large Moderate Stool Color Brown Brown Stool Consistency Soft Loose Formed # Voids 1 # Bowel Movements 2 # of times incontinent of 1 Bowels General appearance: average body habitus and no acute distress Head Head exam: Present normal inspection Eye Eye exam: Present EOMI and PERRL ENT ENT exam: Present mucous membranes moist Neck Neck exam: Present normal inspection; Absent meningismus Respiratory Respiratory exam: Present normal respiratory exam and CTAB Cardiovascular Cardiovascular exam: Present normal rate and rhythm, +S1 and +S2; Absent rubs or +S3 GI/Abdominal GI/Abdominal exam: Present normal bowel sounds Neurological Exam Neurological exam: Present abnormal gait (walker and nwb right) and CN II-XII intact Psychiatric Psychiatric exam: Present anxious Skin Skin exam: Present dry Additional findings Additional findings: Seen and evaluated on dialysis A/P Assessment and plan (1) End-stage renal disease on hemodialysis: Assessment and plan: HD qTTS at [facility] HD Plan: Miss 11/29/2022 due to staffing issues Treatment 12/01/2022 as acute inpatient, then TTS Status: Chronic (2) Secondary hyperparathyroidism of renal origin: Plan: Check Ca, PO4 and PTH Status: Chronic (3) Uncontrolled type 2 diabetes mellitus with insulin therapy: Assessment and plan: Short acting insulin Hospital medicine and PCP Plan: per Hospital Med Status: Chronic (4) Gangrene of toe of right foot: Plan: S/P right transmetatarsal amputation Cultures negative so I would sean Barrios ID note Event Note: Culture remains negative. MRSA screen of the specimen negative Path pending Can be discharged on po levofloxacin 750mg q48 hours for 2 weeks. Please have patient follow up with ID at the earliest clinic date to follow up on culture and path Status: Chronic (5) Anemia in end-stage renal disease: Plan: Aranesp q Thursday ordered for tomorrow Status: Chronic Narrative A/P Narrative: 1 ESRD 2. Anemia of ESRD - Aranesp 100 ug sq or IV qT 3. Secondary Hyperparathyroidism in ESRD => Start Ca Acetate 800 mg po TID with meals Plan of Treatment: * HD tomorrow 12/01/2022 and again Thursday12/02/2022 eithere as inpatient or upon discharge in outpatient unit on the way to facility for rehab. * Aranesp SQ Thursday * Check CA, PO4 and PTH tomorrow. Time Spent With Patient Time: Total time spent is greater than 50% in coordination of care (as documented) at patient's floor/unit and/or counseling patient:
[2022-12-01] MEDS: DOCUSATE SODIUM 100 MG CAPSULE PO SCH ×2 (08:44→21:10)
[2022-12-01] MEDS: INSULIN LISPRO 1 UNIT/0.01 ML UNIT SQ SCH ×4 (08:44→21:23)
--- NOTE | 2022-12-01 09:00 | Event Note ---
Event Note Event Note: Culture remains negative. MRSA screen of the specimen negative Path pending Can be discharged on po levofloxacin 750mg q48 hours for 2 weeks. Please have patient follow up with ID at the earliest clinic date to follow up on culture and path
[2022-12-01] MEDS: HEPARIN 5,000 UNIT/ML VIAL SQ SCH ×2 (12:15→21:23)
[2022-12-01] MEDS: INSULIN GLARGINE, HUMAN 1 UNIT/0.01 ML SQ SCH (12:21)
[2022-12-01] MEDS: CEFEPIME 1 GM VIAL IV SCH (13:57)
[2022-12-01] MEDS: CALCIUM ACETATE 667 MG TABLET PO SCH (19:36)
[2022-12-02] MEDS: 0.9 % SODIUM CHLORIDE 10 ML SYRINGE IV SCH (05:45)
--- NOTE | 2022-12-02 07:16 | Nephrology Progress Note ---
SUBJECTIVE Subjective Patient information: Note initiated : 12/02/22 at 7:08 am Service Date, if different from initiated Date: [] Patient: Ana Kovacs 72 y/o F admitted on 11/27/22 for Foot pain- Osteomyelitis,Gangrene. Chief Complaint: [Sent from Podiatry Office] Principal diagnosis: osteomyelitis right forefoot Interval history: Elderly female HD patient with DM and bilateral foot ulcerations, R>L with prior gangrenous lesion distal phalynx requiring amputaion. Now failed months of outpatient local debridement and po ABx admitted for definitive Surgical treatment performed right Transmetatarsal Amputation. Cultures neg so ID said high dose po Levaquin at 750 mg po q48 hr. Dialysis q TTS / scheduled for today and placement soon as she lives alone in [facility]. Anemia of CKD and acute blood loss of hospitilization => Aranesp 100 ug SQ q Tues. 2 HPT of ESRD => Started Ca Acetate 667 mg Caps po TID with meals. Vital Signs Temp Pulse Pulse Resp BP BP BP 12/02/22 03:36 36.3 C 65 14 125/64 12/01/22 23:49 36.9 C 68 14 130/58 12/01/22 19:30 36.8 C 76 14 139/55 12/01/22 16:00 36.8 C 65 16 118/50 12/01/22 12:00 35.8 C L 80 16 148/38 12/01/22 13:35 35.7 C L 80 127/45 12/01/22 13:27 80 122/42 12/01/22 13:06 80 151/45 12/01/22 12:50 80 144/41 12/01/22 12:38 80 138/49 12/01/22 12:16 80 122/57 12/01/22 11:54 95 H 101/23 12/01/22 11:41 77 150/53 12/01/22 11:09 80 144/59 12/01/22 10:36 77 143/42 12/01/22 10:05 35.9 C L 73 141/43 12/01/22 08:00 36.6 C 74 16 127/51 Pulse Ox O2 Del Method 12/02/22 03:36 99 Room Air 12/01/22 23:49 100 Room Air 12/01/22 19:30 100 Room Air 12/01/22 16:00 96 Room Air 12/01/22 12:00 99 Room Air 12/01/22 13:35 12/01/22 13:27 12/01/22 13:06 12/01/22 12:50 12/01/22 12:38 12/01/22 12:16 12/01/22 11:54 12/01/22 11:41 12/01/22 11:09 12/01/22 10:36 12/01/22 10:05 12/01/22 08:00 95 Room Air Intake and Output 12/01/22 12/02/22 12/02/22 19:59 03:59 11:59 Intake Total 240 350 Output Total 2400 200 Balance -2160 150 Intake: Oral 240 350 Output: Urine/Stool Mix 200 Hemodialysis UF 2400 Other: Meal Dinner Percent of Meal Consumed 50% Stool Size Moderate Stool Color Brown Stool Consistency Soft # Voids 1 Weight 61.19 kg Pertinent ROS: Ambulate some with rolling walker Tolerated HD yesterday (December 01) Need to know date of D/C for dialysis planning. Today is her regular HD day and orders written. Additional PMFSH (Level 3 Only): Nothing new See prior list Constitutional Vitals: Vital Signs Temp Pulse Resp BP Pulse Ox O2 Del Method O2 Flow Rate 36.3 C 65 14 125/64 99 Room Air 0 12/02/22 03:36 12/02/22 03:36 12/02/22 03:36 12/02/22 03:36 12/02/22 03:36 12/02/22 03:36 11/30/22 15:58 Period Temp Pulse Resp BP Sys/Lloyd Pulse Ox O2 Del Method O2 Flow Rate Last 24 Hr 35.7 C-36.9 C 65-95 14-16 101-151/23-64 95-100 Room Air-Room Air Intake and Output 12/01/22 12/02/22 12/02/22 19:59 03:59 11:59 Intake Total 240 350 Output Total 2400 200 Balance -2160 150 Weight 61.19 kg Intake & Output: Intake & Output 12/01/22 12/02/22 12/02/22 19:59 03:59 11:59 Intake Total 240 350 Output Total 2400 200 Balance -2160 150 Weight 61.19 kg Intake: Oral 240 350 Output: Urine/Stool Mix 200 Hemodialysis UF 2400 Other: Meal Dinner Percent of Meal Consumed 50% Stool Size Moderate Stool Color Brown Stool Consistency Soft # Voids 1 General appearance: average body habitus and no acute distress Head Head exam: Present normocephalic Eye Eye exam: Present EOMI and PERRL ENT ENT exam: Present mucous membranes moist Neck Additional comments: No elevated JVD Respiratory Respiratory exam: Present normal respiratory exam Cardiovascular Cardiovascular exam: Present normal rate and rhythm, +S1 and +S2 GI/Abdominal GI/Abdominal exam: Present normal bowel sounds and soft Extremities Exam Extremities exam: Absent pedal edema Additional comments: Right Transmetatarsal Amp site wrapped Neurological Exam Neurological exam: Present alert, CN II-XII intact and oriented X3 Psychiatric Psychiatric exam: Present normal affect and normal mood Skin Skin exam: Present dry A/P Assessment and plan (1) End-stage renal disease on hemodialysis: Assessment and plan: HD qTTS at [facility] HD Plan: Missed 11/29/2022 due to staffing issues Treatment 12/01/2022 as acute inpatient, then TTS Repeat HD today to get patient back on TTS schedule Apparently CM secured a bed so D/C to outpatient HD for TTS routine HD Status: Chronic (2) Secondary hyperparathyroidism of renal origin: Plan: Check Ca, PO4 and PTH Start Calcium Acetate capsules 667 mg po TID with meals Status: Chronic (3) Uncontrolled type 2 diabetes mellitus with insulin therapy: Assessment and plan: SS Short acting insulin Hospital medicine and PCP Plan: per Hospital Med Status: Chronic (4) Gangrene of toe of right foot: Plan: S/P right transmetatarsal amputation Cultures negative so I would sean Barrios ID note Event Note: Culture remains negative. MRSA screen of the specimen negative Path pending Can be discharged on po levofloxacin 750mg q48 hours for 2 weeks. Please have patient follow up with ID at the earliest clinic date to follow up on culture and path Status: Chronic (5) Anemia in end-stage renal disease: Plan: Aranesp q Thursday ordered with HD 100 ug IV Status: Chronic Sepsis Sepsis Identified: No Narrative A/P Narrative: 1 ESRD 2. Anemia of ESRD - Aranesp 100 ug sq or IV 3. Secondary Hyperparathyroidism in ESRD => Start Ca Acetate 800 mg po TID with meals Plan of Treatment: * HD Thursday12/02/2022 and thereafter back on qTTS schedule * Aranesp SQ Thursday 100 ug IV with HD * Check CA, PO4 and PTH=> start Calcium acetate 667 mg po TID with meals See above. Time Spent With Patient Time: Total time spent is greater than 50% in coordination of care (as documented) at patient's floor/unit and/or counseling patient: Initial: Total time with patient: 40 - 54 minutes
[2022-12-02] MEDS: DOCUSATE SODIUM 100 MG CAPSULE PO SCH (08:04)
[2022-12-02] MEDS: HEPARIN 5,000 UNIT/ML VIAL SQ SCH (08:04)
[2022-12-02] MEDS: INSULIN LISPRO 1 UNIT/0.01 ML UNIT SQ SCH (08:05)
[2022-12-02] MEDS: CALCIUM ACETATE 667 MG TABLET PO SCH (08:05)
[2022-12-02] MEDS: INSULIN GLARGINE, HUMAN 1 UNIT/0.01 ML SQ SCH (08:06)
[2022-12-02] MEDS: CEFEPIME 1 GM VIAL IV SCH (09:22)
[2022-12-02] MEDS ORDERED: DARBEPOETIN ALFA 100 MCG/ML VIAL IV ONE (09:56)
--- NOTE | 2022-12-22 12:40 | Operative Note ---
DATE OF OPERATION: 11/28/2022 PREOPERATIVE DIAGNOSIS: Osteomyelitis, right forefoot. POSTOPERATIVE DIAGNOSIS: Osteomyelitis, right forefoot. PROCEDURE: Right transmetatarsal amputation with primary closure. SURGEON: Sanket Dunlap D.P.M. PATHOLOGY: 1. Pre-amputation bone culture. 2. Post-amputation bone culture. 3 Right forefoot. ANESTHESIA: Monitored anesthesia care with local injection. HEMOSTASIS: Anatomic. ESTIMATED BLOOD LOSS: 200 mL. MATERIALS USED: 2-0 nylon and one Alvaro-Lucia drain. COMPLICATIONS: None. INJECTABLES: 30 mL of 0.5% Marcaine plain. PREAMBLE: The patient is a 72-year-old, diabetic woman with end-stage renal disease and chronic ulcerations with prior partial digital amputations on multiple digits on her right foot. She has bone-probing ulcerations and MRI evidence of osteomyelitis in the first and second rays distally, and it was felt at this time that she would best be served with a transmetatarsal amputation. The patient is in very ill health and requires hemodialysis three times a week. Her hemodialysis is here with Dr. Houston at [facility]. It is fortunate to have the patient admitted prior to surgery as she lives on her own and would be at risk for breakdown doing daily living activities. DESCRIPTION OF PROCEDURE: The patient was brought to the operating room and identified by anesthesia staff and myself. The patient was transferred from the [facility] to the operating table and placed in a supine position. Once the patient received an adequate plane of anesthesia, the right foot was then injected with 30 mL of 0.5% Marcaine plain in a ring block fashion around the forefoot. Foot was prepped and draped in normal sterile fashion and five stab incisions over the metatarsals were created. The sagittal saw was used to transect the metatarsals. Two linear incisions were created following the stab incisions dorsally and bleeders were clamped and ligated along the way. Next, a fishmouth incision was added to the bottom of the foot and a large ulceration was excised just distal to the flap. The bleeders were clamped and ligated. Connective tissues were protracted and excised. The capsules and all the metatarsophalangeal joints were excised. Next, a sterile glove filled with 4 x 4's was inserted into the wound and a mild compression was added to the forefoot and the flap with Sony wrap. We kept the Sony wrap on for approximately 10 minutes, and the glove was removed. Next, the area was cleansed with 3 liters of normal sterile saline in a pulse lavage fashion. The flap was brought up from the plantar surface to the dorsum and closed with 2-0 nylon in interrupted modified horizontal mattress sutures. A Alvaro-Lucia drain was inserted into the dorsum of the foot and the foot was cleansed with normal sterile saline and a dry sterile dressing was applied with a posterior splint for security. The patient tolerated the procedure well and was transferred from the operating room to the PACU with vital signs stable and vascular status intact. She was quickly transferred back to her room and readmitted to the hospitalist service. TOBIAS:[email or web address] Job ID: [id number] Doc ID: [id number] Sanket Dunlap DPM
== END 2022-12-02 11:05 | DRG 239 ==
LOC: ED 15:42 → MEDSUR 20:40
PROVIDERS: ADMIT Internal Medicine; ATTEND Internal Medicine